=== PATIENT | female | born 1980 | race Two or more races ===

== ENCOUNTER 2020-06-01 17:04 | Outpatient (REF) | payer BC, SELFPAY ==
[2020-06-01 18:27] LABS: SCAN SMEAR FLAG 1
[2020-06-01 18:28] LABS: PLT ABN DIST 1
[2020-06-01 18:29] LABS: Basophils Percent Auto 0.4 % (0-2); Eosinophils Percent Auto 0.8 % (0-4); Hematocrit 37.8 % (37-47); Hemoglobin 12.5 g/dl (12.0-16.0); Imm Gran Abs Auto 0.01 X10*3/uL (0.00-0.03); Imm Gran Pct Auto 0.2 % (0.0-0.4); Lymphocytes Absolute Auto 1.4 X10*3/uL (1.2-4.9); MANUAL DIFF FLAG SCAN; Mean Corpuscular HGB Conc 33.1 g/dl (31.0-35.0); Mean Corpuscular Hemoglobin 30.2 pg (27.0-33.0); Mean Corpuscular Volume 91.3 fL (80-98); Mean Platelet Volume 13.6 fL (9.4-12.3); Monocytes Absolute Auto 0.3 X10*3/uL (0.1-1.2); Monocytes Percent Auto 5.8 % (2-11); Neutrophils Absolute Auto 3.3 X10*3/uL (2.0-8.3); Neutrophils Percent Auto 64.8 % (45-73); Platelet Count 231 X10*3/uL (160-400); Red Blood Count 4.14 X10*6/uL (4.20-5.50); Red Cell Distribution Width 12.8 % (11.0-16.0); White Blood Count 5.1 X10*3/uL (4.8-10.8)
[2020-06-01 18:47] LABS: SLIDE REVIEW VERIFIED
[2020-06-01 18:48] LABS: Alanine Aminotransferase 8 U/L (0-31); Albumin Level 4.6 g/dL (3.5-5.0); Alkaline Phosphatase 84 U/L (39-117); Anion Gap 17 (12-20); Aspartate Amino Transferase 18 U/L (5-31); Bilirubin Total 0.9 mg/dL (0.0-1.0); Blood Urea Nitrogen 14 mg/dL (9-16); Calcium 8.9 mg/dL (8.4-10.2); Carbon Dioxide 22 mmol/L (22-29); Chloride 102 mmol/L (96-108); Estimated Glomerular Filt Rate > 60; Glucose Random 75 mg/dL (60-115); Potassium 4.4 mmol/l (3.3-5.1); Sodium 137 mmol/L (135-145); Total Protein 8.1 g/dL (6.5-8.0)
[2020-06-01 19:09] LABS: Thyroid Stimulating Hormone 1.14 uIU/mL (0.32-4.0)
[2020-06-01 19:37] LABS: Folate 14.4 ng/mL (> or = 4.0); Vitamin B12 < 146 pg/mL (200-900)
== END 2020-06-01 17:05 | disposition home or self-care (01) ==
LOC: HO.LAB 17:04
PROVIDERS: PCP Internal Medicine; Visit Provider Psychiatry & Neurology Neurology
DX: I67.9 Cerebrovascular disease, unspecified (principal)
CPT/HCPCS: 36415; 80053; 82607; 82746; 84436; 84443; 85025

== ENCOUNTER 2021-07-10 14:00 | Inpatient (IN) | payer BC, SELFPAY ==
--- NOTE | ~2021-07-10 | XR_ITS ---
EXAMINATION: XR CHEST CLINICAL INFORMATION: Covid positive, cough COMPARISON: None TECHNIQUE: Frontal view of the chest was obtained. FINDINGS: Cardiomediastinal silhouette is normal. Lung volumes are diminished. There are bilateral patchy opacities with a minimal lung zone predominance. There are no large pleural effusions. XR/XR chest 1V IMPRESSION: Findings consistent with Covid pneumonia.
[2021-07-10 14:08] VITALS: BP 127/80; PULSE 110; RESP 14; TEMP 36.8; O2SAT 94; BMI 30.9
--- NOTE | 2021-07-10 17:03 | ED.GENADULT ---
HPI - General Adult General Chief complaint: General Medical Stated complaint: Covid + Time Seen by Provider: 07/10/21 14:16 Source: patient Mode of arrival: ambulatory Limitations: no limitations History of Present Illness HPI narrative: 41-year-old female who is not vaccinated for COVID contracted COVID infection from her about 9 days ago, patient still feeling generalized weakness, body ache, coughing with no sputum, subjective fever, and headache. Patient came in today for feeling no improvement with last 9 days, her has improved, son at home also is feeling sick. Patient is nonsmoker, with no history of lung disease Related Data Home Medications Medication Instructions Recorded Confirmed No Known Home Meds 07/10/21 07/10/21 Allergies Allergy/AdvReac Type Severity Reaction Status Date / Time acetaminophen [From PERCOCET] Allergy Mild LOSS OF Unverified 03/19/20 14:58 HEARING oxycodone [From PERCOCET] Allergy Mild LOSS OF Unverified 03/19/20 14:58 HEARING penicillin G Allergy Unknown Unverified 01/27/20 00:00 Penicillins [PENICILLINS] Allergy Unknown RASH Unverified 03/19/20 14:58 Review of Systems Review of Systems: All other systems are reviewed and are negative Constitutional: Reports as per HPI and Reports no additional constitutional complaints Eyes: Reports as per HPI and Reports no additional eye complaints Reports system reviewed and no additional complaints, except as documented Cardiovascular: Reports as per HPI and Reports no additional cardiovascular complaints Respiratory: Reports as per HPI and Reports no additional respiratory complaints Gastrointestinal: Reports as per HPI and Reports no additional gastrointestinal complaints Genitourinary: Reports no additional female genitourinary complaints Musculoskeletal: Reports no additional musculoskeletal complaints Skin/Breast: Reports system reviewed and no additional complaints, except as docu Psychiatric: Reports no additional psychiatric complaints Endocrine: Reports no additional endocrine complaints Hematologic/Lymphatic: Reports no additional hematologic/lymphatic complaints Allergic/Immunologic: Reports no additional allergic/immunologic complaints Reports system reviewed and no additional complaints, except as documented and Reports Abnormal speech present [facility] Social History Social History Advance Directives: No Advance Directives Information Provided: No Patient : No Physical Exam Vital Signs: Vital Signs: Last Vital Signs Temp 98.3 F 07/10/21 14:08 Pulse 107 H 07/10/21 17:43 Resp 24 H 07/10/21 17:43 BP 127/80 07/10/21 14:08 Pulse Ox 99 07/10/21 20:47 BMI result Body Mass Index 30.9 Vital signs have been reviewed as appeared to be correct. Blood pressure normal. Heart rate elevated. Respiration rate normal. Temperature normal. Oxygen saturation normal. Appearance: Alert. Oriented X3. No acute distress. Head: Normal external exam. Normocephalic. Atraumatic. No Z[place] signs noted. No raccoon eyes noted Eyes: PERRLA. EOMI. Conjunctiva and sclera normal. Eyelids normal. ENT: TM's Normal. Pharynx normal. Uvula midline. Moist mucous membranes. No trismus noted. No drooling noted. No muffled voice noted. Neck: Normal inspection. Neck supple. FROM. No adenopathy. Thyroid Normal. No meningeal signs. No neck mass noted. CVS: Normal heart rate and rhythm. Heart sound normal. No murmurs noted. Pulses normal throughout. Respiratory: No respiratory distress. Painless inspiration. Breath sounds normal. No wheezes/rales/rhonchi noted. Chest nontender. No accessory muscle usage noted or decreased air movement noted. Abdomen: Soft and nontender. Bowel sounds normal in all 4 quadrants. No distention noted. No organomegaly noted. No visible injury noted. Back: No CVA tenderness. Full range of motion noted. Skin: Skin warm and dry. Normal skin color. Normal skin turgor. No rashes/lesions/lacerations noted. Extremities: No lower extremity edema. Extremities exhibit normal range of motion. Extremities nontender. Neuro: Oriented X 3. Cranial nerve exam: II-XII are grossly intact No motor deficit. No sensory deficit. Reflexes normal. Course Course Course Narrative: Assessment and plan. 41-year-old female with history of COVID infection of feeling the symptoms without improvement, patient received IV hydration and morphine for the body ache will check the chest x-ray. Reevaluation(s) Reevaluation #1: 41-year-old female COVID positive patient is non vaccinated with sick contact at home, patient found to be tachypneic, tachycardiac, with exertional hypoxia go down to 88%. Will admit the patient for high-flow oxygen and dexamethasone for Patient met criteria for SIRS which is due to viral infection without evidence of bacterial infection. No antibiotic is indicated at this point. Time: 20:03 Medical Decision Making Lab Data Lab results reviewed: Yes I reviewed the patient's lab results. Result diagrams: 07/10/21 17:40 07/10/21 17:40 Labs: Lab Results 07/10/21 07/10/21 07/10/21 Range/Units 17:40 17:40 17:40 WBC 4.2 L (4.8-10.8) X10*3/uL RBC 4.12 L (4.20-5.50) X10*6/uL Hgb 12.6 (12.0-16.0) g/dl Hct 38.1 (37.0-47.0) % MCV 92.5 (80.0-98.0) fL MCH 30.6 (27.0-33.0) pg MCHC 33.1 (31.0-35.0) g/dl RDW 13.1 (11.0-16.0) % Plt Count 177 (160-400) X10*3/uL MPV 12.0 (9.4-12.3) fL Immature Gran % (Auto) 0.5 H (0.0-0.4) % Neut % (Auto) 72.1 (45-73) % Lymph % (Auto) 23.6 (20-40) % [place] % (Auto) 3.6 (2-11) % Eos % (Auto) 0.0 (0-4) % Baso % (Auto) 0.2 (0-2) % Lymph # (Auto) 1.0 L (1.2-4.9) X10*3/uL [place] # (Auto) 0.2 (0.1-1.2) X10*3/uL Eos # (Auto) 0.0 (0.0-0.4) X10*3/uL Baso # (Auto) 0.0 (0.0-0.2) X10*3/uL Abs Immat Gran (auto) 0.02 (0.00-0.03) X10*3/uL Absolute Neuts (auto) 3.0 (2.0-8.3) x10*3/uL Absolute Nucleated RBC 0.000 (0.0-0.012) X10*3/uL Nucleated RBC % (auto) 0.0 (0.0-0.2) /100WBC Sodium 136 (135-145) mmol/L Potassium 3.1 L (3.3-5.1) mmol/L Chloride 97 (96-108) mmol/L Carbon Dioxide 30 H (22-29) mmol/L Anion Gap 12 (12-20) BUN 10 (9-16) mg/dL Creatinine 0.89 (0.5-1.4) mg/dL Estim Creat Clear Calc 85.9 Estimated GFR > 60 Random Glucose 105 (60-115) mg/dL Calcium 9.0 (8.4-10.2) mg/dL Total Bilirubin 0.5 (0.0-1.0) mg/dL Direct Bilirubin 0.3 (0.0-0.5) mg/dL AST 26 D (5-31) U/L ALT 13 (0-31) U/L Alkaline Phosphatase 75 (39-117) U/L Total Protein 8.1 H (6.5-8.0) g/dL Albumin 4.3 (3.5-5.0) g/dL Lipase 20 (8-78) U/L Urine Color Urine Appearance Urine pH (5.0-8.0) Ur Specific [place] (1.005-1.025) Urine Protein (NEG-TRACE) MG/DL Urine Glucose (UA) (NEG) MG/DL Urine Ketones (NEG) MG/DL Urine Blood (NEG) Urine Nitrite (NEG) Ur Leukocyte Esterase (NEG) Urine RBC (0) /HPF Urine WBC (0-4) /HPF Ur Squamous Epith Cells /LPF Urine Bacteria /LPF Urine Mucus /LPF Influenza Type A (PCR) NEGATIVE (Negative) Influenza Type B (PCR) NEGATIVE (Negative) RSV RNA Qual (PCR) NEGATIVE (Negative) SARS-CoV-2 RNA (RT-PCR) POSITIVE A (Negative) 07/10/21 Range/Units 17:40 WBC (4.8-10.8) X10*3/uL RBC (4.20-5.50) X10*6/uL Hgb (12.0-16.0) g/dl Hct (37.0-47.0) % MCV (80.0-98.0) fL MCH (27.0-33.0) pg MCHC (31.0-35.0) g/dl RDW (11.0-16.0) % Plt Count (160-400) X10*3/uL MPV (9.4-12.3) fL Immature Gran % (Auto) (0.0-0.4) % Neut % (Auto) (45-73) % Lymph % (Auto) (20-40) % [place] % (Auto) (2-11) % Eos % (Auto) (0-4) % Baso % (Auto) (0-2) % Lymph # (Auto) (1.2-4.9) X10*3/uL [place] # (Auto) (0.1-1.2) X10*3/uL Eos # (Auto) (0.0-0.4) X10*3/uL Baso # (Auto) (0.0-0.2) X10*3/uL Abs Immat Gran (auto) (0.00-0.03) X10*3/uL Absolute Neuts (auto) (2.0-8.3) x10*3/uL Absolute Nucleated RBC (0.0-0.012) X10*3/uL Nucleated RBC % (auto) (0.0-0.2) /100WBC Sodium (135-145) mmol/L Potassium (3.3-5.1) mmol/L Chloride (96-108) mmol/L Carbon Dioxide (22-29) mmol/L Anion Gap (12-20) BUN (9-16) mg/dL Creatinine (0.5-1.4) mg/dL Estim Creat Clear Calc Estimated GFR Random Glucose (60-115) mg/dL Calcium (8.4-10.2) mg/dL Total Bilirubin (0.0-1.0) mg/dL Direct Bilirubin (0.0-0.5) mg/dL AST (5-31) U/L ALT (0-31) U/L Alkaline Phosphatase (39-117) U/L Total Protein (6.5-8.0) g/dL Albumin (3.5-5.0) g/dL Lipase (8-78) U/L Urine Color DK YELLOW Urine Appearance CLEAR Urine pH 6.0 (5.0-8.0) Ur Specific [place] 1.025 (1.005-1.025) Urine Protein 1+ H (NEG-TRACE) MG/DL Urine Glucose (UA) NEG (NEG) MG/DL Urine Ketones >=80 (NEG) MG/DL Urine Blood NEG (NEG) Urine Nitrite NEG (NEG) Ur Leukocyte Esterase NEG (NEG) Urine RBC 0-2 (0) /HPF Urine WBC 0-2 (0-4) /HPF Ur Squamous Epith Cells 1+ /LPF Urine Bacteria TRACE /LPF Urine Mucus TRACE /LPF Influenza Type A (PCR) (Negative) Influenza Type B (PCR) (Negative) RSV RNA Qual (PCR) (Negative) SARS-CoV-2 RNA (RT-PCR) (Negative) Imaging Data Chest x-ray: Attestation: I personally reviewed and interpreted this imaging study as follows: Radiologist's impression: Findings consistent with COVID pneumonia. Discharge Plan Discharge Clinical Impression: COVID-19 virus infection Patient Disposition: Admitted As Inpatient
[2021-07-10] MEDS: Morphine Sulfate 2 MG/ML CARTRIDGE 1 MG IVPUSH (17:42)
[2021-07-10 17:43] VITALS: PULSE 107; RESP 24; O2SAT 91
[2021-07-10] MEDS: 0.9 % Sodium Chloride 1,000 ML 999 ML IV (17:43)
[2021-07-10 17:50] LABS: MANUAL DIFF FLAG NO
[2021-07-10 17:52] LABS: Basophils Percent Auto 0.2 % (0-2); Hematocrit 38.1 % (37.0-47.0); Hemoglobin 12.6 g/dl (12.0-16.0); Imm Gran Abs Auto 0.02 X10*3/uL (0.00-0.03); Imm Gran Pct Auto 0.5 % (0.0-0.4); Lymphocytes Percent Auto 23.6 % (20-40); Mean Corpuscular HGB Conc 33.1 g/dl (31.0-35.0); Mean Corpuscular Hemoglobin 30.6 pg (27.0-33.0); Mean Corpuscular Volume 92.5 fL (80.0-98.0); Monocytes Absolute Auto 0.2 X10*3/uL (0.1-1.2); Monocytes Percent Auto 3.6 % (2-11); Neutrophils Percent Auto 72.1 % (45-73); Platelet Count 177 X10*3/uL (160-400); Red Blood Count 4.12 X10*6/uL (4.20-5.50); Red Cell Distribution Width 13.1 % (11.0-16.0); White Blood Count 4.2 X10*3/uL (4.8-10.8)
[2021-07-10] MEDS: ondansetron HCL 4 MG/2 ML VIAL IVPUSH (17:52)
[2021-07-10 17:56] LABS: Appearance Urine CLEAR; Color Urine DK YELLOW; Glucose Urine UA NEG (NEG); Leukocyte Esterase Urine NEG (NEG); Nitrite Urine NEG (NEG); Specific Gravity - Urine 1.025 (1.005-1.025); UACC Culture Trigger NO; Urine Blood NEG (NEG); Urine Ketones >=80 MG/DL (NEG); Urine Protein 1+ MG/DL (NEG-TRACE)
[2021-07-10 18:10] LABS: Alanine Aminotransferase 13 U/L (0-31); Albumin Level 4.3 g/dL (3.5-5.0); Alkaline Phosphatase 75 U/L (39-117); Anion Gap 12 (12-20); Aspartate Amino Transferase 26 U/L (5-31); Bilirubin Direct 0.3 mg/dL (0.0-0.5); Bilirubin Total 0.5 mg/dL (0.0-1.0); Blood Urea Nitrogen 10 mg/dL (9-16); Carbon Dioxide 30 mmol/L (22-29); Chloride 97 mmol/L (96-108); Creatinine Clr Calc Pharmacy 85.9; Estimated Glomerular Filt Rate > 60; Glucose Random 105 mg/dL (60-115); Lipase 20 U/L (8-78); Potassium 3.1 mmol/L (3.3-5.1); Sodium 136 mmol/L (135-145); Total Protein 8.1 g/dL (6.5-8.0)
[2021-07-10 18:23] LABS: RBC Urine 0-2 /HPF (0); WBC Urine 0-2 /HPF (0-4)
[2021-07-10 18:24] LABS: Bacteria Urine TRACE /LPF; Mucus Urine TRACE /LPF; Squamous Epithelial Cell Urine 1+ /LPF
[2021-07-10 18:29] LABS: Influenza A PCR NEGATIVE (Negative); Influenza B PCR NEGATIVE (Negative); Resp Syncy Virus RNA Qual PCR NEGATIVE (Negative); SARS COV2 PCR INHOUSE POSITIVE (Negative)
--- NOTE | 2021-07-10 20:30 | PM.IMHP ---
History of Present Illness Date of Service: 07/10/21 Chief Complaint: Shortness of breath 41-year-old female with no significant past medical history presented to the hospital with a chief complaint of shortness of breath. Patient reports that over the past 5-6 days she has been having shortness of breath, dyspnea on exertion. Patient reports the was positive for COVID-19 infection. Mentions she was vaccinated in the past. Her symptoms have been gradually worsening, complains of increased generalized weakness, fatigue, shortness of breath and dyspnea on exertion associated with cough. Complains of subjective chills. Denies any chest pain or palpitations. Denies any numbness tingling or focal weakness. Review of all other systems is negative except mentioned above ER course: Per ER team patient was noted to be mildly tachypneic; chest x-ray showed COVID pneumonia; patient was saturating 91% on room air; the lowest was 88%; patient of placed on supplemental oxygen. Admitted to the hospital for further management. [facility] Social History Advance Directives: No Advance Directives Information Provided: No Patient : No Meds Allergies Allergy/AdvReac Type Severity Reaction Status Date / Time acetaminophen [From PERCOCET] Allergy Mild LOSS OF Unverified 03/19/20 14:58 HEARING oxycodone [From PERCOCET] Allergy Mild LOSS OF Unverified 03/19/20 14:58 HEARING penicillin G Allergy Unknown Unverified 01/27/20 00:00 Penicillins [PENICILLINS] Allergy Unknown RASH Unverified 03/19/20 14:58 Physical Exam Vital Signs and Narrative: Vital Signs: Last Vital Signs Temp 98.3 F 07/10/21 14:08 Pulse 107 H 07/10/21 17:43 Resp 24 H 07/10/21 17:43 BP 127/80 07/10/21 14:08 Pulse Ox 91 L 07/10/21 17:43 BMI result Body Mass Index 30.9 Gen: Appears be in no acute distress HEENT: NCAT, Moist mucosa. Pulmonary: Coarse breath sounds CVS: Normal S1-S2 Abdomen: BS+, Soft, Nontender Extremities: Warm well perfused Neuro: Alert and awake. Results Labs CBC and Chem 7: 07/10/21 17:40 07/10/21 17:40 Labs: Laboratory Results - last 24 hr 07/10/21 07/10/21 07/10/21 17:40 17:40 17:40 MCV 92.5 MCH 30.6 MCHC 33.1 RDW 13.1 Plt Count 177 MPV 12.0 Immature Gran % (Auto) 0.5 H Neut % (Auto) 72.1 Lymph % (Auto) 23.6 [place] % (Auto) 3.6 Eos % (Auto) 0.0 Baso % (Auto) 0.2 Lymph # (Auto) 1.0 L [place] # (Auto) 0.2 Eos # (Auto) 0.0 Baso # (Auto) 0.0 Abs Immat Gran (auto) 0.02 Absolute Neuts (auto) 3.0 Absolute Nucleated RBC 0.000 Nucleated RBC % (auto) 0.0 Anion Gap 12 Estim Creat Clear Calc 85.9 Estimated GFR > 60 Random Glucose 105 Calcium 9.0 Total Bilirubin 0.5 Direct Bilirubin 0.3 AST 26 D ALT 13 Alkaline Phosphatase 75 Total Protein 8.1 H Albumin 4.3 Lipase 20 Urine Color Urine Appearance Urine pH Ur Specific [place] Urine Protein Urine Glucose (UA) Urine Ketones Urine Blood Urine Nitrite Ur Leukocyte Esterase Urine RBC Urine WBC Ur Squamous Epith Cells Urine Bacteria Urine Mucus Influenza Type A (PCR) NEGATIVE Influenza Type B (PCR) NEGATIVE RSV RNA Qual (PCR) NEGATIVE SARS-CoV-2 RNA (RT-PCR) POSITIVE A 07/10/21 17:40 MCV MCH MCHC RDW Plt Count MPV Immature Gran % (Auto) Neut % (Auto) Lymph % (Auto) [place] % (Auto) Eos % (Auto) Baso % (Auto) Lymph # (Auto) [place] # (Auto) Eos # (Auto) Baso # (Auto) Abs Immat Gran (auto) Absolute Neuts (auto) Absolute Nucleated RBC Nucleated RBC % (auto) Anion Gap Estim Creat Clear Calc Estimated GFR Random Glucose Calcium Total Bilirubin Direct Bilirubin AST ALT Alkaline Phosphatase Total Protein Albumin Lipase Urine Color DK YELLOW Urine Appearance CLEAR Urine pH 6.0 Ur Specific [place] 1.025 Urine Protein 1+ H Urine Glucose (UA) NEG Urine Ketones >=80 Urine Blood NEG Urine Nitrite NEG Ur Leukocyte Esterase NEG Urine RBC 0-2 Urine WBC 0-2 Ur Squamous Epith Cells 1+ Urine Bacteria TRACE Urine Mucus TRACE Influenza Type A (PCR) Influenza Type B (PCR) RSV RNA Qual (PCR) SARS-CoV-2 RNA (RT-PCR) Imaging Radiologist's Impressions: Impressions Chest X-Ray 07/10/21 17:50 IMPRESSION: Findings consistent with Covid pneumonia. Assessment and Plan (1) COVID-19 virus infection: Status: Acute 41-year-old female with no significant past medical history presented to the hospital with a chief complaint of shortness of breath. Noted to have hypoxic to 88% in the setting of COVID-19 pneumonia. Admitted for further management. COVID-19 pneumonia: Continue Decadron 6 mg, Levaquin empirically. Supplemental oxygen ID consult for further recommendations. Patient reports she was vaccinated with COVID 19 vaccine in the past. DVT prophylaxis: Lovenox Code status: Full code Quality Stroke Does the patient have a stroke diagnosis?: No VTE Prior VTE?: No VTE Risk Level:: Medical - moderate - high VTE Device Contraindication: Treatment Not Indicated VTE Drug Contraindication: N/A - Med Ordered
[2021-07-10 20:45] VITALS: O2SAT 88
--- NOTE | 2021-07-10 20:45 | PC.NURSE ---
PT satting at 88% on RA. PT placed on O2 via NC at 2 L/min. PT sat with O2 is at 99%.
[2021-07-10 20:47] VITALS: O2SAT 99
[2021-07-10 21:15] LABS: D Dimer High Sensitivity 803 NG/ML
[2021-07-10] MEDS: levoFLOXacin 750 MG TABLET PO (21:27)
[2021-07-10] MEDS: Enoxaparin Sodium 40 MG/0.4 ML SYRINGE SUBCUT (21:28)
--- NOTE | 2021-07-10 21:32 | PC.NURSE ---
pt resting in bed, pt medicated per Mar.
[2021-07-11] VITALS (11 sets, daily range): BP systolic 102–119; BP diastolic 58–75; PULSE 78–115; RESP 18–27; TEMP 36.8–37.8; O2SAT 89–98
[2021-07-11] MEDS: 0.9 % Sodium Chloride Flush 3 ML SYRINGE IVFLUSH ×2 (02:29→07:47)
[2021-07-11] MEDS: Morphine Sulfate 2 MG/ML CARTRIDGE 1 MG IVPUSH ×3 (02:31→20:18)
[2021-07-11] MEDS: ondansetron HCL 4 MG/2 ML VIAL IVPUSH (05:20)
[2021-07-11 06:45] LABS: MANUAL DIFF FLAG NO
[2021-07-11 06:50] LABS: Hemoglobin 10.5 g/dl (12.0-16.0); Imm Gran Abs Auto 0.01 X10*3/uL (0.00-0.03); Imm Gran Pct Auto 0.3 % (0.0-0.4); Lymphocytes Absolute Auto 0.9 X10*3/uL (1.2-4.9); Lymphocytes Percent Auto 25.1 % (20-40); Mean Corpuscular HGB Conc 32.8 g/dl (31.0-35.0); Mean Corpuscular Volume 91.4 fL (80.0-98.0); Mean Platelet Volume 11.8 fL (9.4-12.3); Monocytes Absolute Auto 0.2 X10*3/uL (0.1-1.2); Monocytes Percent Auto 4.3 % (2-11); Neutrophils Absolute Auto 2.6 x10*3/uL (2.0-8.3); Neutrophils Percent Auto 70.3 % (45-73); Platelet Count 159 X10*3/uL (160-400); Red Cell Distribution Width 13.3 % (11.0-16.0); White Blood Count 3.7 X10*3/uL (4.8-10.8)
[2021-07-11 07:08] LABS: Anion Gap 11 (12-20); Blood Urea Nitrogen 8 mg/dL (9-16); Carbon Dioxide 29 mmol/L (22-29); Chloride 100 mmol/L (96-108); Creatinine Clr Calc Pharmacy 106.3; Estimated Glomerular Filt Rate > 60; Glucose Random 113 mg/dL (60-115); Potassium 3.3 mmol/L (3.3-5.1); Sodium 137 mmol/L (135-145)
[2021-07-11 07:20] LABS: Calcium 8.2 mg/dL (8.4-10.2)
[2021-07-11] MEDS: dexAMETHasone sod phosphate 4 MG/ML VIAL 6 MG IVPUSH (07:47)
[2021-07-11] MEDS: Acetaminophen 325 MG TABLET 650 MG PO (07:53)
--- NOTE | 2021-07-11 09:36 | P.PNIM_ITS ---
Subjective Subjective Date of Service: 07/11/21 Interval History: cc: sob, myalgias interval history: unchanged Cardiovascular Cardiovascular: Reports no additional cardiovascular complaints Respiratory Respiratory: Reports no additional respiratory complaints Physical Exam Vital Signs: Vital Signs: Last Vital Signs Temp 98.5 F 07/11/21 09:01 Pulse 89 07/11/21 07:22 Resp 27 H 07/11/21 07:22 BP 117/75 07/11/21 07:22 Pulse Ox 98 07/11/21 07:22 BMI result Body Mass Index 30.9 General: AO X 3, diaphoretic, ill appearing Resp: Crackles bilateral, no accessory muscles used CVS: S1,S2,RRR GI: soft, non tender, non distended Neuro: motor grossly intact, alert Psych: appropriate affect, appropriate insight Objective Data Active Medications Acetaminophen (Acetaminophen 325 Mg Tablet) 650 mg PO Q6H PRN PRN Reason: Pain, Mild (Pain Scale 1-3) Last Admin: 07/11/21 07:53 Dose: 650 mg Documented by: SAMANTHA Dexamethasone Sodium Phosphate (Dexamethasone Sod Phosphate 4 Mg/Ml Vial) 6 mg IVPUSH DAILY [facility] Last Admin: 07/11/21 07:47 Dose: 6 mg Documented by: SAMANTHA Enoxaparin Sodium (Enoxaparin Sodium 40 Mg/0.4 Ml Syringe) 40 mg SUBCUT Q24H [facility] Last Admin: 07/10/21 21:28 Dose: 40 mg Documented by: IMTIAZ Morphine Sulfate (Morphine Sulfate 2 Mg/Ml Cartridge) 1 mg IVPUSH Q4H PRN; Protocol PRN Reason: pain/sob Last Admin: 07/11/21 07:46 Dose: 1 mg Documented by: SAMANTHA Senna (Sennosides 8.6 Mg Tablet) 17.2 mg PO BEDTIME PRN PRN Reason: Constipation Sodium Chloride (0.9 % Sodium Chloride Flush 3 Ml Syringe) 3 ml IVFLUSH QSHIFT [facility] Last Admin: 07/11/21 07:47 Dose: 3 ml Documented by: SAMANTHA Labs CBC & Chem 7: 07/11/21 06:40 07/11/21 06:40 Labs: Laboratory Results - last 24 hr 07/10/21 07/10/21 07/10/21 17:40 17:40 17:40 MCV 92.5 MCH 30.6 MCHC 33.1 RDW 13.1 Plt Count 177 MPV 12.0 Immature Gran % (Auto) 0.5 H Neut % (Auto) 72.1 Lymph % (Auto) 23.6 [place] % (Auto) 3.6 Eos % (Auto) 0.0 Baso % (Auto) 0.2 Lymph # (Auto) 1.0 L [place] # (Auto) 0.2 Eos # (Auto) 0.0 Baso # (Auto) 0.0 Abs Immat Gran (auto) 0.02 Absolute Neuts (auto) 3.0 Absolute Nucleated RBC 0.000 Nucleated RBC % (auto) 0.0 D-Dimer High Sensitivty Anion Gap 12 Estim Creat Clear Calc 85.9 Estimated GFR > 60 Random Glucose 105 Calcium 9.0 Total Bilirubin 0.5 Direct Bilirubin 0.3 AST 26 D ALT 13 Alkaline Phosphatase 75 Total Protein 8.1 H Albumin 4.3 Lipase 20 Urine Color Urine Appearance Urine pH Ur Specific [place] Urine Protein Urine Glucose (UA) Urine Ketones Urine Blood Urine Nitrite Ur Leukocyte Esterase Urine RBC Urine WBC Ur Squamous Epith Cells Urine Bacteria Urine Mucus Influenza Type A (PCR) NEGATIVE Influenza Type B (PCR) NEGATIVE RSV RNA Qual (PCR) NEGATIVE SARS-CoV-2 RNA (RT-PCR) POSITIVE A 07/10/21 07/10/21 07/11/21 17:40 20:46 06:40 MCV 91.4 MCH 30.0 MCHC 32.8 RDW 13.3 Plt Count 159 L MPV 11.8 Immature Gran % (Auto) 0.3 Neut % (Auto) 70.3 Lymph % (Auto) 25.1 [place] % (Auto) 4.3 Eos % (Auto) 0.0 Baso % (Auto) 0.0 Lymph # (Auto) 0.9 L [place] # (Auto) 0.2 Eos # (Auto) 0.0 Baso # (Auto) 0.0 Abs Immat Gran (auto) 0.01 Absolute Neuts (auto) 2.6 Absolute Nucleated RBC 0.000 Nucleated RBC % (auto) 0.0 D-Dimer High Sensitivty 803 Anion Gap Estim Creat Clear Calc Estimated GFR Random Glucose Calcium Total Bilirubin Direct Bilirubin AST ALT Alkaline Phosphatase Total Protein Albumin Lipase Urine Color DK YELLOW Urine Appearance CLEAR Urine pH 6.0 Ur Specific [place] 1.025 Urine Protein 1+ H Urine Glucose (UA) NEG Urine Ketones >=80 Urine Blood NEG Urine Nitrite NEG Ur Leukocyte Esterase NEG Urine RBC 0-2 Urine WBC 0-2 Ur Squamous Epith Cells 1+ Urine Bacteria TRACE Urine Mucus TRACE Influenza Type A (PCR) Influenza Type B (PCR) RSV RNA Qual (PCR) SARS-CoV-2 RNA (RT-PCR) 07/11/21 06:40 MCV MCH MCHC RDW Plt Count MPV Immature Gran % (Auto) Neut % (Auto) Lymph % (Auto) [place] % (Auto) Eos % (Auto) Baso % (Auto) Lymph # (Auto) [place] # (Auto) Eos # (Auto) Baso # (Auto) Abs Immat Gran (auto) Absolute Neuts (auto) Absolute Nucleated RBC Nucleated RBC % (auto) D-Dimer High Sensitivty Anion Gap 11 L Estim Creat Clear Calc 106.3 Estimated GFR > 60 Random Glucose 113 Calcium 8.2 L D Total Bilirubin Direct Bilirubin AST ALT Alkaline Phosphatase Total Protein Albumin Lipase Urine Color Urine Appearance Urine pH Ur Specific [place] Urine Protein Urine Glucose (UA) Urine Ketones Urine Blood Urine Nitrite Ur Leukocyte Esterase Urine RBC Urine WBC Ur Squamous Epith Cells Urine Bacteria Urine Mucus Influenza Type A (PCR) Influenza Type B (PCR) RSV RNA Qual (PCR) SARS-CoV-2 RNA (RT-PCR) Assessment and Plan (1) COVID-19 virus infection: Status: Acute Assessment and Plan: 41F presented with sob, myalgias acute hypoxic respiratory failure due to covid pneumonia decadron day 2 wean o2 as tolerated no evidence of bacterial infection, will dc levaquin ID eval pancytopenia likely due to above could be from history of untreated b12 defeciency recheck b12 start supplement dvt prophylaxis - lovenox full code Quality Stroke Does the patient have a stroke diagnosis?: No VTE Prior VTE?: No VTE Risk Level:: Medical - moderate - high VTE Device Contraindication: Treatment Not Indicated VTE Drug Contraindication: N/A - Med Ordered
[2021-07-11] MEDS: Cyanocobalamin (Vitamin B-12) 1,000 MCG TABLET 1000 MCG PO (11:41)
--- NOTE | 2021-07-11 14:43 | MHC.CM.PN ---
Met with patient in regards to discharge planning. Patient lives with her and children, ambulates independently and had no services prior to coming to the hospital. Patient tested positive for Covid on 07/10. Patient has not received any Covid vaccines. HCP completed, signed and witnessed. Original given to patient. Copy placed in chart. to transport when medically stable. Continue to monitor for d/c needs.
--- NOTE | 2021-07-11 17:00 | PC.NURSE ---
PT HAS HAD AN UNEVENTFUL DAY, SHE HAS BEE OFF O2 AND HAS REMAINS >90% SHE IS TOLERATING PO INTAKE
--- NOTE | 2021-07-11 20:02 | PC.NURSE ---
Assumed care of pt at 1900. Pt resting in bed, attached to mission assessment specialist, call light at hand. Endorsing ACOSTA, will medicate
[2021-07-11] MEDS: Enoxaparin Sodium 40 MG/0.4 ML SYRINGE SUBCUT (20:20)
[2021-07-12] VITALS (7 sets, daily range): BP systolic 98–124; BP diastolic 51–76; PULSE 76–87; RESP 16–20; TEMP 36.3–37.2; O2SAT 91–98; BMI 30.9
[2021-07-12 07:41] LABS: Hematocrit 32.7 % (37.0-47.0); Hemoglobin 10.6 g/dl (12.0-16.0); Mean Corpuscular HGB Conc 32.4 g/dl (31.0-35.0); Mean Corpuscular Volume 92.6 fL (80.0-98.0); Mean Platelet Volume 11.6 fL (9.4-12.3); Platelet Count 193 X10*3/uL (160-400); Red Blood Count 3.53 X10*6/uL (4.20-5.50); Red Cell Distribution Width 13.2 % (11.0-16.0); White Blood Count 4.5 X10*3/uL (4.8-10.8)
[2021-07-12 07:45] LABS: D Dimer High Sensitivity 532 NG/ML
[2021-07-12 08:02] LABS: Anion Gap 10 (12-20); Blood Urea Nitrogen 11 mg/dL (9-16); C Reactive Protein 6.37 mg/dL (< or = 0.50); Calcium 8.9 mg/dL (8.4-10.2); Carbon Dioxide 32 mmol/L (22-29); Chloride 101 mmol/L (96-108); Creatinine Clr Calc Pharmacy 100.6; Estimated Glomerular Filt Rate > 60; Glucose Fasting 123 mg/dL (60-99); Sodium 140 mmol/L (135-145)
[2021-07-12 08:34] LABS: Vitamin B12 164 pg/mL (200-900)
[2021-07-12 08:38] LABS: Lactate Dehydrogenase 263 U/L (122-220)
[2021-07-12] MEDS: dexAMETHasone sod phosphate 4 MG/ML VIAL 6 MG IVPUSH (09:18)
[2021-07-12] MEDS: 0.9 % Sodium Chloride Flush 3 ML SYRINGE IVFLUSH ×2 (09:18→17:10)
[2021-07-12] MEDS: Cyanocobalamin (Vitamin B-12) 1,000 MCG TABLET 1000 MCG PO (09:18)
--- NOTE | 2021-07-12 09:22 | PC.NURSE ---
pt sleeping, but easily arousable, respirations even and unlabored, ls diminished on the bases, sating at% on 2l, pt reports having a bad headache pain at 8/10, normal sinus on the monitor
[2021-07-12] MEDS: Morphine Sulfate 2 MG/ML CARTRIDGE 1 MG IVPUSH (09:49)
--- NOTE | 2021-07-12 11:10 | HO.PM.IMPN ---
Subjective Subjective Date of Service: 07/12/21 Interval History: cc: sob, myalgias interval history: unchanged Cardiovascular Cardiovascular: Reports no additional cardiovascular complaints Respiratory Respiratory: Reports no additional respiratory complaints Physical Exam Vital Signs: Vital Signs: Last Vital Signs Temp 98.9 F 07/12/21 05:31 Pulse 82 07/12/21 09:24 Resp 18 07/12/21 09:24 BP 98/51 L 07/12/21 09:24 Pulse Ox 94 07/12/21 09:24 BMI result Body Mass Index 30.9 General: AO X 3, diaphoretic, ill appearing Resp:? Crackles bilateral, no accessory muscles used CVS: S1,S2,RRR GI: soft, non tender, non distended Neuro:? motor grossly intact, alert Psych: appropriate affect, appropriate insight? Objective Data Active Medications Acetaminophen (Acetaminophen 325 Mg Tablet) 650 mg PO Q6H PRN PRN Reason: Pain, Mild (Pain Scale 1-3) Last Admin: 07/11/21 07:53 Dose: 650 mg Documented by: SAMANTHA Cyanocobalamin (Cyanocobalamin (Vitamin B-12) 1,000 Mcg Tablet) 1,000 mcg PO DAILY [facility] Last Admin: 07/12/21 09:18 Dose: 1,000 mcg Documented by: REED Dexamethasone Sodium Phosphate (Dexamethasone Sod Phosphate 4 Mg/Ml Vial) 6 mg IVPUSH DAILY [facility] Last Admin: 07/12/21 09:18 Dose: 6 mg Documented by: REED Enoxaparin Sodium (Enoxaparin Sodium 40 Mg/0.4 Ml Syringe) 40 mg SUBCUT Q24H [facility] Last Admin: 07/11/21 20:20 Dose: 40 mg Documented by: PEDRO Morphine Sulfate (Morphine Sulfate 2 Mg/Ml Cartridge) 1 mg IVPUSH Q4H PRN; Protocol PRN Reason: pain/sob Last Admin: 07/12/21 09:49 Dose: 1 mg Documented by: REED Senna (Sennosides 8.6 Mg Tablet) 17.2 mg PO BEDTIME PRN PRN Reason: Constipation Sodium Chloride (0.9 % Sodium Chloride Flush 3 Ml Syringe) 3 ml IVFLUSH QSHIFT [facility] Last Admin: 07/12/21 09:18 Dose: 3 ml Documented by: HO.BAILEA Labs CBC & Chem 7: 07/12/21 07:28 07/12/21 07:28 Labs: Laboratory Results - last 24 hr 07/11/21 07/12/21 07/12/21 06:40 07:28 07:28 MCV 92.6 MCH 30.0 MCHC 32.4 RDW 13.2 Plt Count 193 MPV 11.6 Absolute Nucleated RBC 0.000 Nucleated RBC % (auto) 0.0 D-Dimer High Sensitivty 532 Anion Gap Estim Creat Clear Calc Estimated GFR Fasting Glucose Calcium Lactate Dehydrogenase C-Reactive Protein Vitamin B12 164 L 07/12/21 07:28 MCV MCH MCHC RDW Plt Count MPV Absolute Nucleated RBC Nucleated RBC % (auto) D-Dimer High Sensitivty Anion Gap 10 L Estim Creat Clear Calc 100.6 Estimated GFR > 60 Fasting Glucose 123 H Calcium 8.9 D Lactate Dehydrogenase 263 H C-Reactive Protein 6.37 H Vitamin B12 Assessment and Plan (1) COVID-19 virus infection: Status: Acute Assessment and Plan: 41F presented with sob, myalgias acute hypoxic respiratory failure due to covid pneumonia decadron day 3 wean o2 as tolerated ID eval still desaturating to 87% on room air this morning and symptomatic pancytopenia likely due to above could be from history of untreated b12 defeciency, repeat 164 started supplement hypokalemia replace and monitor dvt prophylaxis - lovenox full code Quality Stroke Does the patient have a stroke diagnosis?: No VTE Prior VTE?: No VTE Risk Level:: Medical - moderate - high VTE Device Contraindication: Treatment Not Indicated VTE Drug Contraindication: N/A - Med Ordered
[2021-07-12] MEDS: Potassium Chloride ER 20 MEQ TAB.ER.PRT 40 MEQ PO (11:48)
--- NOTE | 2021-07-12 11:50 | PC.NURSE ---
pt reports feeling better after the morphine no pain at this time
[2021-07-12] MEDS: Enoxaparin Sodium 40 MG/0.4 ML SYRINGE SUBCUT (20:45)
[2021-07-13] MEDS: 0.9 % Sodium Chloride Flush 3 ML SYRINGE IVFLUSH ×4 (01:02→21:45)
[2021-07-13 03:51] VITALS: BP 114/57; PULSE 57; RESP 18; TEMP 36.5; O2SAT 98
[2021-07-13 06:59] LABS: Hemoglobin 10.3 g/dl (12.0-16.0); Mean Corpuscular HGB Conc 32.2 g/dl (31.0-35.0); Mean Corpuscular Hemoglobin 29.9 pg (27.0-33.0); Platelet Count 222 X10*3/uL (160-400); Red Blood Count 3.44 X10*6/uL (4.20-5.50); Red Cell Distribution Width 13.2 % (11.0-16.0); White Blood Count 3.5 X10*3/uL (4.8-10.8)
[2021-07-13 07:33] VITALS: BP 100/53; PULSE 63; RESP 20; TEMP 37.1; O2SAT 98
[2021-07-13 07:33] LABS: Anion Gap 11 (12-20); Blood Urea Nitrogen 15 mg/dL (9-16); Calcium 9.1 mg/dL (8.4-10.2); Carbon Dioxide 30 mmol/L (22-29); Chloride 104 mmol/L (96-108); Creatinine Clr Calc Pharmacy 99.4; Estimated Glomerular Filt Rate > 60; Glucose Fasting 91 mg/dL (60-99); Magnesium 2.3 mg/dL (1.6-2.6); Potassium 4.1 mmol/L (3.3-5.1); Sodium 141 mmol/L (135-145)
[2021-07-13] MEDS: dexAMETHasone sod phosphate 4 MG/ML VIAL 6 MG IVPUSH (10:21)
[2021-07-13] MEDS: Cyanocobalamin (Vitamin B-12) 1,000 MCG TABLET 1000 MCG PO (10:22)
[2021-07-13] MEDS: Acetaminophen 325 MG TABLET 650 MG PO (11:14)
[2021-07-13 12:00] VITALS: BP 103/62; PULSE 78; RESP 20; TEMP 36.4; O2SAT 96
--- NOTE | 2021-07-13 12:33 | HO.PM.IMPN ---
Subjective Subjective Date of Service: 07/13/21 Interval History: cc: sob, myalgias interval history: a bit better today Cardiovascular Cardiovascular: Reports no additional cardiovascular complaints Gastrointestinal Gastrointestinal: Reports no additional gastrointestinal complaints Physical Exam Vital Signs: Vital Signs: Last Vital Signs Temp 97.6 F 07/13/21 12:00 Pulse 78 07/13/21 12:00 Resp 20 07/13/21 12:00 BP 103/62 07/13/21 12:00 Pulse Ox 96 07/13/21 12:00 BMI result Body Mass Index 30.9 General: AO X 3, weak Resp:? Crackles bilateral, no accessory muscles used CVS: S1,S2,RRR GI: soft, non tender, non distended Neuro:? motor grossly intact, alert Psych: appropriate affect, appropriate insight? Objective Data Active Medications Acetaminophen (Acetaminophen 325 Mg Tablet) 650 mg PO Q6H PRN PRN Reason: Pain, Mild (Pain Scale 1-3) Last Admin: 07/13/21 11:14 Dose: 650 mg Documented by: ANANYA Cyanocobalamin (Cyanocobalamin (Vitamin B-12) 1,000 Mcg Tablet) 1,000 mcg PO DAILY [facility] Last Admin: 07/13/21 10:22 Dose: 1,000 mcg Documented by: ANANYA Dexamethasone Sodium Phosphate (Dexamethasone Sod Phosphate 4 Mg/Ml Vial) 6 mg IVPUSH DAILY [facility] Last Admin: 07/13/21 10:21 Dose: 6 mg Documented by: ANANYA Enoxaparin Sodium (Enoxaparin Sodium 40 Mg/0.4 Ml Syringe) 40 mg SUBCUT Q24H [facility] Last Admin: 07/12/21 20:45 Dose: 40 mg Documented by: CARMEN Morphine Sulfate (Morphine Sulfate 2 Mg/Ml Cartridge) 1 mg IVPUSH Q4H PRN; Protocol PRN Reason: pain/sob Last Admin: 07/12/21 09:49 Dose: 1 mg Documented by: REED Ondansetron HCl (Ondansetron Hcl 4 Mg/2 Ml Vial) 4 mg IVPUSH Q6H PRN PRN Reason: nasuea Senna (Sennosides 8.6 Mg Tablet) 17.2 mg PO BEDTIME PRN PRN Reason: Constipation Sodium Chloride (0.9 % Sodium Chloride Flush 3 Ml Syringe) 3 ml IVFLUSH QSHIFT [facility] Last Admin: 07/13/21 10:21 Dose: 3 ml Documented by: ANANYA Labs CBC & Chem 7: 07/13/21 06:38 07/13/21 06:37 Labs: Laboratory Results - last 24 hr 07/13/21 07/13/21 06:37 06:38 MCV 93.0 MCH 29.9 MCHC 32.2 RDW 13.2 Plt Count 222 MPV 12.0 Absolute Nucleated RBC 0.000 Nucleated RBC % (auto) 0.0 Anion Gap 11 L Estim Creat Clear Calc 99.4 Estimated GFR > 60 Fasting Glucose 91 Calcium 9.1 Magnesium 2.3 Assessment and Plan (1) COVID-19 virus infection: Status: Acute Assessment and Plan: 41F presented with sob, myalgias acute hypoxic respiratory failure due to covid pneumonia decadron day 4 wean o2 as tolerated still requiring 2L o2 pancytopenia likely due to above could be from history of untreated b12 defeciency, repeat 164 started supplement hypokalemia replaced dvt prophylaxis - lovenox full code Quality Stroke Does the patient have a stroke diagnosis?: No VTE Prior VTE?: No VTE Risk Level:: Medical - moderate - high VTE Device Contraindication: Treatment Not Indicated VTE Drug Contraindication: N/A - Med Ordered
--- NOTE | 2021-07-13 12:34 | P.CNID_ITS ---
History of Present Illness Data of Consult Service Date: 07/13/21 Requesting physician: Malcom Samuels Primary Care Provider: Jose Puga MD [facility] Reason for consult: COVID hypoxia She presents with cough and shortness of breath for nine days She had body aches as well as weakness She is now day 12 on 2 liters oxygen Review of Systems Verdana 4l Review of Systems: Yes all other systems are reviewed and Verdana 4d are negative [facility] Family History Family history: reviewed and not pertinent Social History Social History Household Members: Family and Children Housing: House Do you presently have visiting nurse or other home services: No Patient Tobacco Use Status: Never used Tobacco Advance Directives Date on File: 07/11/21 service: No Current occupational status: unemployed Meds Allergies Allergy/AdvReac Type Severity Reaction Status Date / Time acetaminophen [From Allergy Mild LOSS OF Unverified 03/19/20 14:58 PERCOCET] HEARING oxycodone [From Allergy Mild LOSS OF Unverified 03/19/20 14:58 PERCOCET] HEARING penicillin G Allergy Unknown Unverified 01/27/20 00:00 Penicillins Allergy Unknown RASH Unverified 03/19/20 14:58 [PENICILLINS] Active Medications: Current Medications Acetaminophen (Acetaminophen 325 Mg Tablet) 650 mg PO Q6H PRN PRN Reason: Pain, Mild (Pain Scale 1-3) Last Admin: 07/13/21 11:14 Dose: 650 mg Documented by: Cyanocobalamin (Cyanocobalamin (Vitamin B-12) 1,000 Mcg Tablet) 1,000 mcg PO DAILY [facility] Last Admin: 07/13/21 10:22 Dose: 1,000 mcg Documented by: Dexamethasone Sodium Phosphate (Dexamethasone Sod Phosphate 4 Mg/Ml Vial) 6 mg IVPUSH DAILY [facility] Last Admin: 07/13/21 10:21 Dose: 6 mg Documented by: Enoxaparin Sodium (Enoxaparin Sodium 40 Mg/0.4 Ml Syringe) 40 mg SUBCUT Q24H [facility] Last Admin: 07/12/21 20:45 Dose: 40 mg Documented by: Morphine Sulfate (Morphine Sulfate 2 Mg/Ml Cartridge) 1 mg IVPUSH Q4H PRN; Protocol PRN Reason: pain/sob Last Admin: 07/12/21 09:49 Dose: 1 mg Documented by: Ondansetron HCl (Ondansetron Hcl 4 Mg/2 Ml Vial) 4 mg IVPUSH Q6H PRN PRN Reason: nasuea Senna (Sennosides 8.6 Mg Tablet) 17.2 mg PO BEDTIME PRN PRN Reason: Constipation Sodium Chloride (0.9 % Sodium Chloride Flush 3 Ml Syringe) 3 ml IVFLUSH QSHIFT [facility] Last Admin: 07/13/21 10:21 Dose: 3 ml Documented by: Physical Exam Verdana 4l Vital Signs: Verdana 4d Verdana 4d Vital Signs: Verdana 4d Verdana 4Bd Last Vital Signs Verdana 4d Lead Data Architect New 4d Lead Data Architect New 4d Temp 97.6 F 07/13/21 12:00 Lead Data Architect New 4d Pulse 78 07/13/21 12:00 Lead Data Architect New 4d Resp 20 07/13/21 12:00 BP 103/62 07/13/21 12:00 Pulse Ox 96 07/13/21 12:00 BMI result Body Mass Index 30.9 Const: General: cooperative HENMT: Head: Yes normal to inspection Eyes: Pupils: Equal, round and reactive pupils present Resp: Effort & Inspection: normal respiratory effort Cardio: Rate: regular rate Rhythm: regular rhythm GI: Palpation (GI): nontender Skin: General skin exam: no rashes or lesions noted Neuro: Cranial nerves: Yes Equal, round and reactive pupils present Results Labs CBC & Chem 7: 07/15/21 06:44 07/15/21 06:44 Labs: Short CBC 07/13/21 Range/Units 06:38 WBC 3.5 L (4.8-10.8) X10*3/uL Hgb 10.3 L (12.0-16.0) g/dl Hct 32.0 L (37.0-47.0) % Plt Count 222 (160-400) X10*3/uL BMP 07/13/21 06:37 Sodium 141 Potassium 4.1 D Chloride 104 Carbon Dioxide 30 H BUN 15 Creatinine 0.77 Calcium 9.1 Assessment and Plan (1) COVID-19 virus infection: Status: Resolved She is on 2 liters and is day 12 of symptoms She is comfortable and receiving Dexamethasone Plan Continue Dexamethasone Finish 10 d course
[2021-07-13 15:20] VITALS: BP 113/81; PULSE 73; RESP 20; TEMP 36.7; O2SAT 94
[2021-07-13 19:17] VITALS: BP 99/64; PULSE 78; RESP 20; TEMP 36.1; O2SAT 94
[2021-07-13] MEDS: Enoxaparin Sodium 40 MG/0.4 ML SYRINGE SUBCUT (21:43)
[2021-07-13 23:48] VITALS: BP 105/65; PULSE 82; RESP 18; TEMP 36.8; O2SAT 95
[2021-07-14 03:49] VITALS: BP 91/53; PULSE 60; RESP 17; TEMP 36.6; O2SAT 97
[2021-07-14 07:25] VITALS: BP 100/65; PULSE 68; RESP 20; TEMP 36.6; O2SAT 97
[2021-07-14 07:29] LABS: Hematocrit 32.7 % (37.0-47.0); Hemoglobin 10.5 g/dl (12.0-16.0); Mean Corpuscular HGB Conc 32.1 g/dl (31.0-35.0); Mean Corpuscular Hemoglobin 29.6 pg (27.0-33.0); Mean Corpuscular Volume 92.1 fL (80.0-98.0); Mean Platelet Volume 11.6 fL (9.4-12.3); Platelet Count 306 X10*3/uL (160-400); Red Blood Count 3.55 X10*6/uL (4.20-5.50); White Blood Count 4.1 X10*3/uL (4.8-10.8)
[2021-07-14 07:39] LABS: Anion Gap 15 (12-20); Blood Urea Nitrogen 18 mg/dL (9-16); C Reactive Protein 2.72 mg/dL (< or = 0.50); Calcium 9.2 mg/dL (8.4-10.2); Carbon Dioxide 24 mmol/L (22-29); Chloride 107 mmol/L (96-108); Estimated Glomerular Filt Rate > 60; Glucose Fasting 90 mg/dL (60-99); Potassium 3.8 mmol/L (3.3-5.1); Sodium 142 mmol/L (135-145)
[2021-07-14] MEDS: dexAMETHasone sod phosphate 4 MG/ML VIAL 6 MG IVPUSH (07:51)
[2021-07-14] MEDS: Cyanocobalamin (Vitamin B-12) 1,000 MCG TABLET 1000 MCG PO (07:51)
[2021-07-14] MEDS: ondansetron HCL 4 MG/2 ML VIAL IVPUSH (07:59)
[2021-07-14] MEDS: 0.9 % Sodium Chloride Flush 3 ML SYRINGE IVFLUSH ×2 (07:59→20:37)
--- NOTE | 2021-07-14 11:23 | MHC.CM.PN ---
Per ROUNDS discussion, Patient is not yet medically cleared for dc (IV Decadron, 2LO2); Home is the goal for dc and CM will follow for possible need to adjust the dc plan.
[2021-07-14 11:31] VITALS: BP 97/61; PULSE 76; RESP 19; TEMP 36.9; O2SAT 95
--- NOTE | 2021-07-14 14:55 | P.PNIM_ITS ---
Subjective Subjective Date of Service: 07/14/21 Interval History: breathing slowly improving however still short of breath with minimal exertion Review of Systems denies chest pain Admits to exertional shortness of breath Denies nausea and vomiting and diarrhea Physical Exam Vital Signs: Vital Signs: Last Vital Signs Temp 98.5 F 07/14/21 11:31 Pulse 76 07/14/21 11:31 Resp 19 07/14/21 11:31 BP 97/61 07/14/21 11:31 Pulse Ox 95 07/14/21 11:31 BMI result Body Mass Index 30.9 Objective Data Active Medications Acetaminophen (Acetaminophen 325 Mg Tablet) 650 mg PO Q6H PRN PRN Reason: Pain, Mild (Pain Scale 1-3) Last Admin: 07/13/21 11:14 Dose: 650 mg Documented by: ANANYA Cyanocobalamin (Cyanocobalamin (Vitamin B-12) 1,000 Mcg Tablet) 1,000 mcg PO DAILY [facility] Last Admin: 07/14/21 07:51 Dose: 1,000 mcg Documented by: LISA Dexamethasone Sodium Phosphate (Dexamethasone Sod Phosphate 4 Mg/Ml Vial) 6 mg IVPUSH DAILY [facility] Last Admin: 07/14/21 07:51 Dose: 6 mg Documented by: LISA Enoxaparin Sodium (Enoxaparin Sodium 40 Mg/0.4 Ml Syringe) 40 mg SUBCUT Q24H [facility] Last Admin: 07/13/21 21:43 Dose: 40 mg Documented by: DEDRICK Morphine Sulfate (Morphine Sulfate 2 Mg/Ml Cartridge) 1 mg IVPUSH Q4H PRN; Protocol PRN Reason: pain/sob Last Admin: 07/12/21 09:49 Dose: 1 mg Documented by: REED Ondansetron HCl (Ondansetron Hcl 4 Mg/2 Ml Vial) 4 mg IVPUSH Q6H PRN PRN Reason: nasuea Last Admin: 07/14/21 07:59 Dose: 4 mg Documented by: LISA Senna (Sennosides 8.6 Mg Tablet) 17.2 mg PO BEDTIME PRN PRN Reason: Constipation Sodium Chloride (0.9 % Sodium Chloride Flush 3 Ml Syringe) 3 ml IVFLUSH QSHIFT [facility] Last Admin: 07/14/21 07:59 Dose: 3 ml Documented by: LISA Labs CBC & Chem 7: 07/14/21 07:02 07/14/21 07:02 Labs: Laboratory Results - last 24 hr 07/14/21 07/14/21 07:02 07:02 MCV 92.1 MCH 29.6 MCHC 32.1 RDW 13.0 Plt Count 306 D MPV 11.6 Absolute Nucleated RBC 0.000 Nucleated RBC % (auto) 0.0 Anion Gap 15 Estim Creat Clear Calc 102.0 Estimated GFR > 60 Fasting Glucose 90 Calcium 9.2 C-Reactive Protein 2.72 H Assessment and Plan (1) COVID-19 virus infection: Status: Acute Assessment and Plan: 41F presented with sob, myalgias 1.Acute hypoxic respiratory failure due to covid pneumonia Decadron day 5 Wean o2 as tolerated 2.Pancytopenia Resolving... continue to follow. Likely mu;tifactorial dvt prophylaxis - lovenox full code Quality Stroke Does the patient have a stroke diagnosis?: No VTE Prior VTE?: No VTE Risk Level:: Medical - moderate - high VTE Device Contraindication: Treatment Not Indicated VTE Drug Contraindication: N/A - Med Ordered
[2021-07-14 16:00] VITALS: BP 97/64; PULSE 72; RESP 18; TEMP 37.1; O2SAT 93
[2021-07-14 19:56] VITALS: BP 100/67; PULSE 66; RESP 18; TEMP 37.1; O2SAT 97
[2021-07-14] MEDS: Enoxaparin Sodium 40 MG/0.4 ML SYRINGE SUBCUT (20:36)
[2021-07-14 23:48] VITALS: BP 103/74; PULSE 65; RESP 18; TEMP 37.7; O2SAT 96
[2021-07-15 03:47] VITALS: BP 94/66; PULSE 61; RESP 17; TEMP 36.6; O2SAT 97
[2021-07-15 07:20] LABS: MANUAL DIFF FLAG NO
[2021-07-15 07:32] LABS: Basophils Percent Auto 0.2 % (0-2); Eosinophils Percent Auto 0.2 % (0-4); Hematocrit 32.3 % (37.0-47.0); Hemoglobin 10.5 g/dl (12.0-16.0); Imm Gran Pct Auto 1.9 % (0.0-0.4); Lymphocytes Absolute Auto 2.2 X10*3/uL (1.2-4.9); Lymphocytes Percent Auto 42.8 % (20-40); Mean Corpuscular HGB Conc 32.5 g/dl (31.0-35.0); Mean Corpuscular Hemoglobin 30.5 pg (27.0-33.0); Mean Corpuscular Volume 93.9 fL (80.0-98.0); Mean Platelet Volume 11.3 fL (9.4-12.3); Monocytes Absolute Auto 0.4 X10*3/uL (0.1-1.2); Monocytes Percent Auto 7.5 % (2-11); Neutrophils Absolute Auto 2.5 x10*3/uL (2.0-8.3); Neutrophils Percent Auto 47.4 % (45-73); Platelet Count 327 X10*3/uL (160-400); Red Blood Count 3.44 X10*6/uL (4.20-5.50); Red Cell Distribution Width 13.2 % (11.0-16.0); White Blood Count 5.2 X10*3/uL (4.8-10.8)
[2021-07-15 07:49] VITALS: BP 109/54; PULSE 66; RESP 18; TEMP 36.3; O2SAT 95
[2021-07-15 07:59] LABS: Alanine Aminotransferase 25 U/L (0-31); Albumin Level 3.5 g/dL (3.5-5.0); Alkaline Phosphatase 63 U/L (39-117); Anion Gap 11 (12-20); Aspartate Amino Transferase 20 U/L (5-31); Bilirubin Total 0.6 mg/dL (0.0-1.0); Blood Urea Nitrogen 16 mg/dL (9-16); Carbon Dioxide 29 mmol/L (22-29); Chloride 105 mmol/L (96-108); Creatinine Clr Calc Pharmacy 95.6; Estimated Glomerular Filt Rate > 60; Glucose Fasting 88 mg/dL (60-99); Potassium 3.7 mmol/L (3.3-5.1); Sodium 141 mmol/L (135-145); Total Protein 6.6 g/dL (6.5-8.0)
[2021-07-15] MEDS: 0.9 % Sodium Chloride Flush 3 ML SYRINGE IVFLUSH (08:57)
[2021-07-15] MEDS: dexAMETHasone sod phosphate 4 MG/ML VIAL 6 MG IVPUSH (08:57)
[2021-07-15] MEDS: Cyanocobalamin (Vitamin B-12) 1,000 MCG TABLET 1000 MCG PO (08:57)
[2021-07-15 11:40] VITALS: BP 103/69; PULSE 73; RESP 18; TEMP 36.6; O2SAT 97
[2021-07-15 13:13] VITALS: PULSE 78; O2SAT 95
--- NOTE | 2021-07-15 14:12 | P.DS_ITS ---
DS: Providers Provider Date of Service: 07/15/21 Date of admission: 07/10/21 20:26 Date of discharge: 07/15/21 Primary care physician: Jose Puga MD Consults: 07/10/21 20:29 Consult to Infectious Diseases Routine Consulting Provider: Gladys Aiken Reason for consultation: covid pna DS: Diagnosis Discharge Diagnosis (1) COVID-19 virus infection: Status: Acute DS: Summary Hospital Course Hospital Course: 41-year-old female with no significant past medical history presented to the hospital with a chief complaint of shortness of breath.? Patient reports that over the past 5-6 days she has been having shortness of breath, dyspnea on exertion.? Patient reports the was positive for COVID-19 infection. er ER team patient was noted to be mildly tachypneic; chest x-ray showed COVID pneumonia; patient was saturating 91% on room air; the lowest was 88%; patient of placed on supplemental oxygen.? Admitted to the hospital for further management. Hospital Course patient was admitted, started on IV dexamethasone and supplemental O2 as she was on day 12 of symptoms when she presented. She progressively improved, and on the day discharge she was ambulating without the need for O2. She will be discharged home to complete a Decadron taper and follow-up with PCP Time Spent with Patient Time attestation: Total time spent providing and/or coordinating discharge services: Discharge coordination time: Greater than 30 minutes Quality: Stroke Does the patient have a stroke diagnosis?: No Physical Exam Vital Signs: Vital Signs: Last Vital Signs Temp 97.8 F 07/15/21 11:40 Pulse 73 07/15/21 11:40 Resp 18 07/15/21 11:40 BP 103/69 07/15/21 11:40 Pulse Ox 97 07/15/21 11:40 BMI result Body Mass Index 30.9 Const: Other: no acute distress Resp: Other: clear but diminished all salcido. Scant expiratory wheezes Cardio: Other: no S4; positive S1-S2; no S3 murmurs rubs or gallops Extrem: Other: no edema bilaterally DS: Data Data Completed and Pending Labs on day of discharge: Laboratory Results - last 24 hr 07/15/21 07/15/21 06:44 06:44 WBC 5.2 RBC 3.44 L Hgb 10.5 L Hct 32.3 L MCV 93.9 MCH 30.5 MCHC 32.5 RDW 13.2 Plt Count 327 MPV 11.3 Immature Gran % (Auto) 1.9 H Neut % (Auto) 47.4 Lymph % (Auto) 42.8 H [place] % (Auto) 7.5 Eos % (Auto) 0.2 Baso % (Auto) 0.2 Lymph # (Auto) 2.2 [place] # (Auto) 0.4 Eos # (Auto) 0.0 Baso # (Auto) 0.0 Abs Immat Gran (auto) 0.10 H Absolute Neuts (auto) 2.5 Absolute Nucleated RBC 0.000 Nucleated RBC % (auto) 0.0 Sodium 141 Potassium 3.7 Chloride 105 Carbon Dioxide 29 Anion Gap 11 L BUN 16 Creatinine 0.80 Estim Creat Clear Calc 95.6 Estimated GFR > 60 Fasting Glucose 88 Calcium 9.0 Total Bilirubin 0.6 AST 20 ALT 25 Alkaline Phosphatase 63 Total Protein 6.6 Albumin 3.5 Discharge Plan Discharge Patient Disposition: Home, Self-Care Discharge Diagnosis: Covid-19 Referrals: Jose Puga MD [Primary Care Provider] - 1 Week Discharge Medications: New dexamethasone [Decadron] 6 mg tablet 6 mg PO DAILY Qty: 5 RF: 0 Discharge Orders: Discharge Order (Routine); Ordered 07/15/21 Ordered By: Ranjit Richardson Diet: advance to usual diet Activity on Discharge: As tolerated Stand Alone Forms: Patient Portal Discharge page Care Plan Goals: slowly advanced activities Health Concerns: you may feel short of breath however your oxygen was normal Plan of Treatment: finish Decadron as ordered Assessment: as per DC summary
--- NOTE | 2021-07-15 14:13 | MHC.CM.PN ---
Patient has been medically cleared for dc to home today, no services.
== END 2021-07-15 18:23 | disposition home or self-care (01) | DRG 137 ==
LOC: HO.ED 20:09 → HO.EDOVER 20:34 → HO.IMC 07-12 13:18
PROVIDERS: Internal Medicine; Admitting Provider Hospitalist; Emergency Provider Emergency Medicine; PCP Internal Medicine; Visit Provider Hospitalist
DX: U07.1 COVID-19 (principal); J96.01 Acute respiratory failure with hypoxia; J12.82 Pneumonia due to coronavirus disease 2019; D61.818 Other pancytopenia; E87.6 Hypokalemia; E53.8 Deficiency of other specified B group vitamins; Z88.0 Allergy status to penicillin; Z88.5 Allergy status to narcotic agent; Z88.6 Allergy status to analgesic agent
CPT/HCPCS: 0241U; 36415; 71045; 80048; 80053; 80076; 81001; 82607; 83615; 83690; 83735; 85025; 85027; 85379; 86140; 96361; 96374; 96375; 99285; J1100; J1650; J2270; J2405

== ENCOUNTER 2022-01-01 12:51 | Observation (INO) | payer BC, SELFPAY ==
--- NOTE | ~2022-01-01 | CT_ITS ---
EXAMINATION: CT HEAD WITHOUT CONTRAST CLINICAL INFORMATION: Dizziness COMPARISON: None TECHNIQUE: Imaging was performed from the skull base to vertex without intravenous administration of contrast. This CT examination was performed using dose optimization techniques as appropriate, variously including the following: *Automated exposure control *Adjustment of mA and/or kV according to patient size (this includes techniques or standardized protocols for targeted exams where dose is matched to indication/reason for exam; i.e. extremities or head) *Use of iterative reconstruction technique Total exam dose length product: 631 mGy-cm FINDINGS: No intra or extra-axial fluid collection, hemorrhage, or mass. No ventriculomegaly. No midline shift or herniation. Basal cisterns are patent. Black-white matter differentiation is maintained. No territorial encephalomalacia. No significant volume loss. There is no abnormal attenuation within the brain parenchyma. No calvarial fracture or soft tissue abnormality. The mastoid air cells and visualized portions of the paranasal sinuses are well aerated. CT/CT head/brain wo con IMPRESSION: 1. No acute intracranial pathology.
[2022-01-01 12:57] VITALS: BP 125/84; PULSE 83; RESP 19; TEMP 36.6; O2SAT 98; BMI 30.9
--- NOTE | 2022-01-01 18:28 | ECG_ITS ---
Test Reason : DIZZINESS Blood Pressure : / mmHG Vent. Rate : 075 BPM Atrial Rate : 075 BPM P-R Int : 146 ms QRS Dur : 070 ms QT Int : 428 ms P-R-T Axes : 032 035 012 degrees QTc Int : 477 ms Normal sinus rhythm Normal ECG No previous ECGs available Referred By: Naveed Enamorado Electronically Signed By:BRANT ARMAS
--- NOTE | 2022-01-01 18:28 | ED.DIZZY ---
HPI - Dizziness General Chief Complaint: Dizziness Stated Complaint: dizziness Time Seen by Provider: 01/01/22 17:47 Source: patient Mode of arrival: ambulatory Limitations: no limitations History of Present Illness HPI Narrative: 41-year-old female history of migraines presenting to the emergency department complaints of dizziness since Monday (3 days ago) patient tells me that the dizziness has been going on every day since then, she tells me it is constant in nature, and precipitated by quick movements or by turning her head. She describes the dizziness as the room spinning. She tells me she was so dizzy on that she ended up falling off her bed hitting her head against a wall. She tells me she is followed by Neurology because she thinks she has a brain mass, they observe this mass however no medications being taken at this time. Patient tells me that she has never gotten an episode of dizziness like this. She denies any vision changes, nausea, vomiting, headache, head trauma, chills, fevers, abdominal pain, weakness. MD elicited complaint: dizziness Onset (ago): day(s) (3) Timing: gradual onset Severity: severe Description: room spinning Context: change in body position History of similar symptoms: No Exacerbating factors: movement/ambulation and change in body position Relieving factors: nothing Associated symptoms: denies other symptoms Related Data Previous Rx's Medication Instructions Recorded dexamethasone 6 mg tablet 6 mg PO DAILY #5 tabs 07/15/21 (Decadron) meclizine 25 mg tablet 25 mg PO BID PRN dizziness #14 tabs 01/01/22 Allergies Allergy/AdvReac Type Severity Reaction Status Date / Time acetaminophen [From PERCOCET] Allergy Mild LOSS OF Unverified 03/19/20 14:58 HEARING oxycodone [From PERCOCET] Allergy Mild LOSS OF Unverified 03/19/20 14:58 HEARING penicillin G Allergy Unknown Unverified 01/27/20 00:00 Penicillins [PENICILLINS] Allergy Unknown RASH Unverified 03/19/20 14:58 Review of Systems Review of Systems: Constitutional : No Weight loss, No Fever, No Chills, No Fatigue, No Malaise ENT/Mouth : No sore throat, No Rhinorrhea Eyes: No Eye Pain, No Swelling, No Redness Cardiovascular : No Chest Pain, No SOB, No Dyspnea on Exertion, No Orthopnea, No Edema, No Palpitations Respiratory : No Cough, No Sputum, No Wheezing Gastrointestinal : No Nausea, No Vomiting, No Diarrhea, No Constipation, No abdominal Pain, No Hematochezia, No Melena Genitourinary : No Dysuria, No Urinary Frequency, No Hematuria, Musculoskeletal : No joint pain, No Myalgias, No Joint Swelling Skin : No Skin Lesions, No rash Neuro : No Weakness, No Numbness, + Dizziness, No Headache Psych : No Anxiety/Panic, No Depression All other systems reviewed and are negative Yes all other systems are reviewed and are negative [facility] Past Medical History Attestation statement: The following information was validated with the patient. Source: old records reviewed and nursing notes reviewed Social History Social History Household Members: Family and Children Housing: House Do you presently have visiting nurse or other home services: No Patient Tobacco Use Status: Never used Tobacco Advance Directives: Yes Advance Directives on File: Yes Advance Directives Date on File: 07/11/21 service: No Current occupational status: unemployed Physical Exam Vital Signs: Vital Signs: Last Vital Signs Temp 98 F 01/01/22 12:57 Pulse 84 01/01/22 23:29 Resp 16 01/01/22 23:29 BP 117/82 01/01/22 23:29 Pulse Ox 100 01/01/22 23:29 O2 Del Method 01/01/22 23:29 BMI result Body Mass Index 30.9 Vital signs stable Appearance: Alert.? Oriented X3.? No acute distress.? Head: Normocephalic, atraumatic, no step-offs or deformities Eyes: Pupils equal, round and reactive to light.? ENT: Pharynx normal.? Neck: Normal inspection.? Neck supple.? CVS: Normal heart rate and rhythm.? Pulses normal.? Respiratory: No respiratory distress.? Breath sounds normal.? Abdomen: Soft and nontender.? Skin: Skin warm and dry.? Normal skin color.? Normal skin turgor.? Extremities: No lower extremity edema.? No calf ttp. 5/5 strength to bilateral upper and lower extremities Neuro: Oriented X 3.? No motor deficit.? No sensory deficit. CN 2-12 intact. Normal [id number], [id number], steady tandem gait. Negative pronator drift Course Reevaluation(s) Reevaluation #1: alirio maneuver done patient tolerated procedure well. Patient feeling better in the upright position, reports that dizziness has improved. Time: 19:15 Reevaluation #2: CBC appears to be at patient's baseline. Chemistry with no acute electrolyte abnormalities requiring intervention, troponin negative, beta hCG negative. UA pending. Head CT pending. Time: 19:29 Reevaluation #3: CT of head with no acute intracranial pathology Time: 22:24 Additional Reevaluation(s): Dizziness improved. Patient me the room is no longer spinning. She reports some vague complaints of nausea. She will be given Zofran. At this time patient will be discharged home with prompt PCP and neurology follow-up. At time of discharge patient with a nonfocal neuro exam, ambulating with steady gait. 0150 Patient ambulated with normal coordination steady gait without assistance, nausea improved minutes after Reglan and Benadryl where in ministry. No longer reporting spinning sensation tells me she is feeling slightly better however foggy. 0200 Patient now feels extreamly dizzy again. Discussed this case w/ hospitalist patient will be admitted at this time. At this time patient will be admitted for severe vertigo that has not responded to meclizine, fluids, Ativan, Benadryl, Reglan. MDM - Dizziness MDM Narrative Medical decision making narrative: 1829 41 yo f presents w/ dizziness x 3 days room spinning . Denies vision change. Not on thinners PE benign. Cerebellar function intact Orthos + due to sx. Plan- labs, ua, fluids, ct head, meclizine Medical Records Attestation: I reviewed the patient's medical records. Lab Data Attestation: I reviewed the patient's lab results. Result diagrams: 01/01/22 18:41 01/01/22 19:56 Labs: Lab Results 01/01/22 01/01/22 01/01/22 Range/Units 18:41 18:41 18:41 WBC 4.8 (4.8-10.8) X10*3/uL RBC 3.99 L (4.20-5.50) X10*6/uL Hgb 11.9 L (12.0-16.0) g/dl Hct 36.0 L (37.0-47.0) % MCV 90.2 (80.0-98.0) fL MCH 29.8 (27.0-33.0) pg MCHC 33.1 (31.0-35.0) g/dl RDW 13.0 (11.0-16.0) % Plt Count 208 D (160-400) X10*3/uL MPV 13.2 H (9.4-12.3) fL Immature Gran % (Auto) 0.2 (0.0-0.4) % Neut % (Auto) 49.3 (45-73) % Lymph % (Auto) 42.1 H (20-40) % Waller % (Auto) 6.3 (2-11) % Eos % (Auto) 1.9 (0-4) % Baso % (Auto) 0.2 (0-2) % Lymph # (Auto) 2.0 (1.2-4.9) X10*3/uL Waller # (Auto) 0.3 (0.1-1.2) X10*3/uL Eos # (Auto) 0.1 (0.0-0.4) X10*3/uL Baso # (Auto) 0.0 (0.0-0.2) X10*3/uL Abs Immat Gran (auto) 0.01 (0.00-0.03) X10*3/uL Absolute Neuts (auto) 2.4 (2.0-8.3) x10*3/uL Absolute Nucleated RBC 0.000 (0.0-0.012) X10*3/uL Nucleated RBC % (auto) 0.0 (0.0-0.2) /100WBC Sodium 141 (135-145) mmol/L Potassium 3.7 (3.3-5.1) mmol/L Chloride 106 (96-108) mmol/L Carbon Dioxide 28 (22-29) mmol/L Anion Gap 11 L (12-20) BUN 11 (9-16) mg/dL Creatinine 0.75 (0.5-1.4) mg/dL Estim Creat Clear Calc 102.0 Estimated GFR > 60 Random Glucose 94 (60-115) mg/dL Calcium 9.4 (8.4-10.2) mg/dL Magnesium (1.6-2.6) mg/dL Total Bilirubin (0.0-1.0) mg/dL AST (5-31) U/L ALT (0-31) U/L Alkaline Phosphatase (39-117) U/L Troponin I High Sens < 3.5 (<3.5-17.0) ng/L Total Protein (6.5-8.0) g/dL Albumin (3.5-5.0) g/dL Beta HCG, Quant < 2 mIU/mL COVID-19 (JANA) (Negative) COVID-19 Clin Com 01/01/22 01/01/22 Range/Units 19:56 19:56 WBC (4.8-10.8) X10*3/uL RBC (4.20-5.50) X10*6/uL Hgb (12.0-16.0) g/dl Hct (37.0-47.0) % MCV (80.0-98.0) fL MCH (27.0-33.0) pg MCHC (31.0-35.0) g/dl RDW (11.0-16.0) % Plt Count (160-400) X10*3/uL MPV (9.4-12.3) fL Immature Gran % (Auto) (0.0-0.4) % Neut % (Auto) (45-73) % Lymph % (Auto) (20-40) % Waller % (Auto) (2-11) % Eos % (Auto) (0-4) % Baso % (Auto) (0-2) % Lymph # (Auto) (1.2-4.9) X10*3/uL Waller # (Auto) (0.1-1.2) X10*3/uL Eos # (Auto) (0.0-0.4) X10*3/uL Baso # (Auto) (0.0-0.2) X10*3/uL Abs Immat Gran (auto) (0.00-0.03) X10*3/uL Absolute Neuts (auto) (2.0-8.3) x10*3/uL Absolute Nucleated RBC (0.0-0.012) X10*3/uL Nucleated RBC % (auto) (0.0-0.2) /100WBC Sodium 141 (135-145) mmol/L Potassium 3.8 (3.3-5.1) mmol/L Chloride 108 (96-108) mmol/L Carbon Dioxide 26 (22-29) mmol/L Anion Gap 11 L (12-20) BUN 11 (9-16) mg/dL Creatinine 0.68 (0.5-1.4) mg/dL Estim Creat Clear Calc 112.5 Estimated GFR > 60 Random Glucose 90 (60-115) mg/dL Calcium 8.5 D (8.4-10.2) mg/dL Magnesium 1.5 L (1.6-2.6) mg/dL Total Bilirubin 0.3 (0.0-1.0) mg/dL AST 16 (5-31) U/L ALT 10 (0-31) U/L Alkaline Phosphatase 78 D (39-117) U/L Troponin I High Sens (<3.5-17.0) ng/L Total Protein 6.3 L (6.5-8.0) g/dL Albumin 3.7 (3.5-5.0) g/dL Beta HCG, Quant mIU/mL COVID-19 (JANA) Negative (Negative) COVID-19 Clin Com See Note ECG Data Attestation: I personally reviewed and interpreted this ECG as follows: ECG interpretation date: 01/01/22 ECG interpretation time: 19:32 Prior ECG tracings: not available for review Interpretation: Ventricular rate of 75 OH normal, QRS normal, QT/QTC normal. EKG with normal sinus rhythm no ST elevations or inversions concerning for ischemia. No previous EKGs to compare with Critical Care Time Critical Care Time Critical Care Time: No Discharge Plan Discharge Clinical Impression: Benign paroxysmal positional vertigo, Nausea & vomiting Patient Disposition: Admitted As Inpatient Instructions: Vertigo (ED), Benign Paroxysmal Positional Vertigo (ED), Dizziness (ED) Prescriptions: New meclizine 25 mg tablet 25 mg PO BID PRN (Reason: dizziness) Qty: 14 0RF No Action dexamethasone [Decadron] 6 mg tablet 6 mg PO DAILY Qty: 5 0RF Referrals: Jose Puga III, MD [Primary Care Provider] - 2 days Stand Alone Forms: Work/School Release
[2022-01-01] MEDS: Meclizine HCl 25 MG TABLET PO (18:43)
[2022-01-01 18:46] LABS: MANUAL DIFF FLAG NO
[2022-01-01 18:52] LABS: Basophils Percent Auto 0.2 % (0-2); Eosinophils Absolute Auto 0.1 X10*3/uL (0.0-0.4); Eosinophils Percent Auto 1.9 % (0-4); Hemoglobin 11.9 g/dl (12.0-16.0); Imm Gran Abs Auto 0.01 X10*3/uL (0.00-0.03); Imm Gran Pct Auto 0.2 % (0.0-0.4); Lymphocytes Percent Auto 42.1 % (20-40); Mean Corpuscular HGB Conc 33.1 g/dl (31.0-35.0); Mean Corpuscular Hemoglobin 29.8 pg (27.0-33.0); Mean Corpuscular Volume 90.2 fL (80.0-98.0); Mean Platelet Volume 13.2 fL (9.4-12.3); Monocytes Absolute Auto 0.3 X10*3/uL (0.1-1.2); Monocytes Percent Auto 6.3 % (2-11); Neutrophils Absolute Auto 2.4 x10*3/uL (2.0-8.3); Neutrophils Percent Auto 49.3 % (45-73); Platelet Count 208 X10*3/uL (160-400); Red Blood Count 3.99 X10*6/uL (4.20-5.50); White Blood Count 4.8 X10*3/uL (4.8-10.8)
[2022-01-01 19:05] LABS: Anion Gap 11 (12-20); Blood Urea Nitrogen 11 mg/dL (9-16); Calcium 9.4 mg/dL (8.4-10.2); Carbon Dioxide 28 mmol/L (22-29); Chloride 106 mmol/L (96-108); Estimated Glomerular Filt Rate > 60; Glucose Random 94 mg/dL (60-115); Potassium 3.7 mmol/L (3.3-5.1); Sodium 141 mmol/L (135-145)
[2022-01-01 19:11] LABS: Troponin-I High Sensitivity < 3.5 ng/L (<3.5-17.0)
[2022-01-01 19:12] LABS: HCG Quantitative < 2 mIU/mL
[2022-01-01] MEDS: 0.9 % Sodium Chloride 1,000 ML 999 ML IV ×2 (19:46→23:29)
[2022-01-01] MEDS: LORazepam 2 MG/ML VIAL 0.5 MG IVPUSH (19:47)
[2022-01-01 20:25] LABS: COVID-19 Test Negative (Negative)
[2022-01-01 20:27] LABS: Alanine Aminotransferase 10 U/L (0-31); Albumin Level 3.7 g/dL (3.5-5.0); Alkaline Phosphatase 78 U/L (39-117); Anion Gap 11 (12-20); Aspartate Amino Transferase 16 U/L (5-31); Bilirubin Total 0.3 mg/dL (0.0-1.0); Blood Urea Nitrogen 11 mg/dL (9-16); Calcium 8.5 mg/dL (8.4-10.2); Carbon Dioxide 26 mmol/L (22-29); Chloride 108 mmol/L (96-108); Creatinine Clr Calc Pharmacy 112.5; Estimated Glomerular Filt Rate > 60; Glucose Random 90 mg/dL (60-115); Magnesium 1.5 mg/dL (1.6-2.6); Potassium 3.8 mmol/L (3.3-5.1); Sodium 141 mmol/L (135-145); Total Protein 6.3 g/dL (6.5-8.0)
[2022-01-01 23:20] VITALS: BP 111/70; PULSE 82; RESP 18; O2SAT 98
[2022-01-01 23:29] VITALS: BP 117/82; PULSE 84; RESP 16; O2SAT 100
--- NOTE | 2022-01-02 01:44 | PC.NURSE ---
pt ambulated without assist with steady gait. pt denies dizziness upon ambulation.
[2022-01-02] MEDS: Metoclopramide HCl 10 MG/2 ML VIAL IVPUSH (01:46)
[2022-01-02] MEDS: diphenhydrAMINE HCL 50 MG/ML VIAL 25 MG IVPUSH (01:46)
[2022-01-02] MEDS: 0.9 % Sodium Chloride 1,000 ML 999 ML IV ×2 (01:47→03:00)
[2022-01-02 04:15] VITALS: BP 122/83; PULSE 86; RESP 16; O2SAT 99
--- NOTE | 2022-01-02 04:49 | PC.NURSE ---
I assumed nursing care of Yodit at 1900. She presented to the ED for evaluation of dizziness. She has remained alert, oriented x 3, calm and cooperative. She is able to adequately vocalize her needs, makes eye contact with staff, AUREA x 4. She states she experiences dizziness and lightheadedness with minimal movement of her head. She states that she 'fell out of bed one day prior to arrival to ED due to extreme dizziness. She denies chest pain. Skin warm and dry. Afebrile. Respirations have been spontaneous, non-labored. RR 18-20, no cyanosis, room air sat's 95% or better, she speaks in full sentences. No cough. No nausea. No vomiting. She has taken PO fluids without difficulty. Yodit is TBADM and verbalizes an understanding of this.
--- NOTE | 2022-01-02 05:58 | PM.IMHP ---
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 Patient reports that her symptoms started on Monday, very severe on minimal head movement, associated with nausea no vomiting. Patient reports no alleviating factors. Reports no recent head injury, ear infection. No tinnitus. Patient denies any fever or chills, no abdominal pain, no diarrhea constipation, no urinary symptoms and no lower extremity edema. Patient received meclizine, Ativan, and underwent Lorenzo maneuver in the ED but with no relief and a significantly dizzy with vertigo. On arrival to the ED patient hemodynamically stable with no significant abnormal vitals Labs are significant for WBC count of 4.8, hemoglobin of 11.9, hematocrit 36, labs otherwise unremarkable Head CT showed was no intra or extra-axial fluid collection, hemorrhage or mass. No midline shift or herniation. There is no abnormal attenuation within the brain parenchyma. As patient vertigo is severe, and intractable, causing her difficulty walking patient will be admitted for observation Review of Systems Review of Systems: Yes all other systems are reviewed and are negative [facility] Medical History (Updated 01/02/22 @ 06:52 by Carrie Gray MD) No pertinent past medical history Family History (Updated 01/02/22 @ 06:51 by Carrie Gray MD) Other No family history of coronary artery disease Surgical History (Updated 01/02/22 @ 06:52 by Carrie Gray MD) History of Social History Household Members: Family and Children Housing: House Do you presently have visiting nurse or other home services: No Patient Tobacco Use Status: Never used Tobacco Advance Directives: Yes Advance Directives on File: Yes Advance Directives Date on File: 07/11/21 service: No Current occupational status: unemployed Meds Allergies Allergy/AdvReac Type Severity Reaction Status Date / Time acetaminophen [From PERCOCET] Allergy Mild LOSS OF Unverified 03/19/20 14:58 HEARING oxycodone [From PERCOCET] Allergy Mild LOSS OF Unverified 03/19/20 14:58 HEARING penicillin G Allergy Unknown Unverified 01/27/20 00:00 Penicillins [PENICILLINS] Allergy Unknown RASH Unverified 03/19/20 14:58 Active Medications: Current Medications Acetaminophen (Acetaminophen 325 Mg Tablet) 650 mg PO Q6H PRN PRN Reason: Pain, Mild (Pain Scale 1-3) Docusate Sodium (Docusate Sodium 100 Mg Capsule) 100 mg PO DAILY PRN PRN Reason: Constipation Ondansetron HCl (Ondansetron Hcl 4 Mg/2 Ml Vial) 4 mg IVPUSH Q8H PRN PRN Reason: Nausea and Vomiting Pharmacy Consult (Consult Rx Perform Med Rec) 1 each MISCELLANE ONCE PRN PRN Reason: Consult order Home Medications Medication Instructions Recorded Confirmed Last Taken Type No Known Home Meds 01/02/22 01/02/22 Unknown History Physical Exam Vital Signs and Narrative: Vital Signs: Last Vital Signs Temp 98 F 01/01/22 12:57 Pulse 86 01/02/22 04:15 Resp 16 01/02/22 04:15 BP 122/83 01/02/22 04:15 Pulse Ox 99 01/02/22 04:15 O2 Del Method 01/02/22 04:15 BMI result Body Mass Index 30.9 Const: General: cooperative and no acute distress Orientation/consciousness: patient oriented x3 Eyes: General: appearance normal, both eyes and all related structures Resp: Effort & Inspection: normal respiratory effort Auscultation: clear to auscultation bilaterally Cardio: Rate: regular rate Rhythm: regular rhythm GI: Palpation (GI): Soft to palpation Auscultation: normal bowel sounds Skin: General skin exam: no rashes or lesions noted Neuro: Other: No nystagmus General: patient oriented x3 Cognition (Neuro): normal cognition Extrem: General: Yes normal to inspection and Yes no pedal edema Results Labs CBC and Chem 7: 01/01/22 18:41 01/01/22 19:56 Labs: Laboratory Results - last 24 hr 01/01/22 01/01/22 01/01/22 18:41 18:41 18:41 MCV 90.2 MCH 29.8 MCHC 33.1 RDW 13.0 Plt Count 208 D MPV 13.2 H Immature Gran % (Auto) 0.2 Neut % (Auto) 49.3 Lymph % (Auto) 42.1 H Faulk % (Auto) 6.3 Eos % (Auto) 1.9 Baso % (Auto) 0.2 Lymph # (Auto) 2.0 Faulk # (Auto) 0.3 Eos # (Auto) 0.1 Baso # (Auto) 0.0 Abs Immat Gran (auto) 0.01 Absolute Neuts (auto) 2.4 Absolute Nucleated RBC 0.000 Nucleated RBC % (auto) 0.0 Anion Gap 11 L Estim Creat Clear Calc 102.0 Estimated GFR > 60 Random Glucose 94 Calcium 9.4 Magnesium Total Bilirubin AST ALT Alkaline Phosphatase Troponin I High Sens < 3.5 Total Protein Albumin Beta HCG, Quant < 2 COVID-19 (JANA) COVID-19 Clin Com 01/01/22 01/01/22 19:56 19:56 MCV MCH MCHC RDW Plt Count MPV Immature Gran % (Auto) Neut % (Auto) Lymph % (Auto) Faulk % (Auto) Eos % (Auto) Baso % (Auto) Lymph # (Auto) Faulk # (Auto) Eos # (Auto) Baso # (Auto) Abs Immat Gran (auto) Absolute Neuts (auto) Absolute Nucleated RBC Nucleated RBC % (auto) Anion Gap 11 L Estim Creat Clear Calc 112.5 Estimated GFR > 60 Random Glucose 90 Calcium 8.5 D Magnesium 1.5 L Total Bilirubin 0.3 AST 16 ALT 10 Alkaline Phosphatase 78 D Troponin I High Sens Total Protein 6.3 L Albumin 3.7 Beta HCG, Quant COVID-19 (JANA) Negative COVID-19 Clin Com See Note Imaging Radiologist's Impressions: Impressions Head CT 01/01/22 22:04 IMPRESSION: 1. No acute intracranial pathology. Assessment and Plan (1) Benign paroxysmal positional vertigo: Status: Acute (2) Nausea & vomiting: Status: Acute Plan 41-year-old female with no significant past medical history who presents to the hospital with intractable vertigo # vertigo - likely secondary to BPPV - patient received multiple rounds of meclizine, and Ativan with no symptom relief - will admit for PT to do Lorenzo maneuver DVT prophylaxis: Early ambulation Quality Stroke Does the patient have a stroke diagnosis?: No VTE Prior VTE?: No VTE Risk Level:: Medical - low VTE Device Contraindication: Treatment Not Indicated VTE Drug Contraindication: Treatment Not Indicated
[2022-01-02 09:03] LABS: Basophils Percent Auto 0.2 % (0-2); Eosinophils Absolute Auto 0.1 X10*3/uL (0.0-0.4); Mean Corpuscular Volume 92.6 fL (80.0-98.0); Red Cell Distribution Width 13.2 % (11.0-16.0); SCAN SMEAR FLAG 1
[2022-01-02 09:04] LABS: Anion Gap 12 (12-20); Blood Urea Nitrogen 9 mg/dL (9-16); Calcium 8.1 mg/dL (8.4-10.2); Carbon Dioxide 25 mmol/L (22-29); Chloride 107 mmol/L (96-108); Creatinine Clr Calc Pharmacy 106.3; Estimated Glomerular Filt Rate > 60; Glucose Random 105 mg/dL (60-115); Potassium 3.5 mmol/L (3.3-5.1); Sodium 140 mmol/L (135-145)
[2022-01-02 09:05] LABS: Eosinophils Percent Auto 1.8 % (0-4); Hematocrit 32.6 % (37.0-47.0); Hemoglobin 10.5 g/dl (12.0-16.0); Imm Gran Abs Auto 0.01 X10*3/uL (0.00-0.03); Imm Gran Pct Auto 0.2 % (0.0-0.4); Lymphocytes Absolute Auto 1.6 X10*3/uL (1.2-4.9); Lymphocytes Percent Auto 35.3 % (20-40); Mean Corpuscular HGB Conc 32.2 g/dl (31.0-35.0); Mean Corpuscular Hemoglobin 29.8 pg (27.0-33.0); Mean Platelet Volume 13.5 fL (9.4-12.3); Monocytes Absolute Auto 0.3 X10*3/uL (0.1-1.2); Monocytes Percent Auto 5.9 % (2-11); Neutrophils Absolute Auto 2.5 x10*3/uL (2.0-8.3); Neutrophils Percent Auto 56.6 % (45-73); Platelet Count 154 X10*3/uL (160-400); Red Blood Count 3.52 X10*6/uL (4.20-5.50); White Blood Count 4.4 X10*3/uL (4.8-10.8)
[2022-01-02 09:07] LABS: MANUAL DIFF FLAG NO; PLT ABN DIST 1
--- NOTE | 2022-01-02 10:35 | PM.DS ---
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 Patient reports that her symptoms started on Monday, very severe on minimal head movement, associated with nausea no vomiting.? Patient reports no alleviating factors.? Reports no recent head injury, ear infection.? No tinnitus.? Patient denies any fever or chills, no abdominal pain, no diarrhea constipation, no urinary symptoms and no lower extremity edema.? Patient received meclizine, Ativan, and underwent Alirio maneuver in the ED but with no relief and a significantly dizzy with vertigo. On arrival to the ED patient hemodynamically stable with no significant abnormal vitals Labs are significant for WBC count of 4.8, hemoglobin of 11.9, hematocrit 36, labs otherwise unremarkable Head CT showed was no intra or extra-axial fluid collection, hemorrhage or mass.? No midline shift or herniation.? There is no abnormal attenuation within the brain parenchyma. As patient vertigo is severe, and intractable, causing her difficulty walking patient will be admitted for observation hospital course: 41-year-old female presented with episodes of vertigo. History and physical exam consistent with benign positional paroxysmal vertigo. Patient noted some improvement with Alirio maneuver, though not totally resolved. She is feeling overall better and would like to continue maneuvers at home. Patient will be given meclizine to premedicate prior to continued Alirio maneuvers. Time Spent with Patient Time attestation: Total time spent providing and/or coordinating discharge services: Discharge coordination time: Greater than 30 minutes Quality: Safe Use of Opioids Does Pt have an Active Cancer Diagnosis on the Problem List?: No Quality: Stroke Does the patient have a stroke diagnosis?: No Physical Exam Vital Signs: Vital Signs: Last Vital Signs Temp 98 F 01/01/22 12:57 Pulse 86 01/02/22 04:15 Resp 16 01/02/22 04:15 BP 122/83 01/02/22 04:15 Pulse Ox 99 01/02/22 04:15 O2 Del Method 01/02/22 04:15 BMI result Body Mass Index 30.9 General: AO X 3, no acute distress Resp: CTA bilateral, no accessory muscles used CVS: S1,S2,RRR GI: soft, non tender, non distended Neuro: motor grossly intact, alert, horizontal unidirectional (leftward) nystagmus Psych: appropriate affect, appropriate insight DS: Data Data Completed and Pending Labs on day of discharge: Laboratory Results - last 24 hr 01/01/22 01/01/22 01/01/22 18:41 18:41 18:41 WBC 4.8 RBC 3.99 L Hgb 11.9 L Hct 36.0 L MCV 90.2 MCH 29.8 MCHC 33.1 RDW 13.0 Plt Count 208 D MPV 13.2 H Immature Gran % (Auto) 0.2 Neut % (Auto) 49.3 Lymph % (Auto) 42.1 H Holmes % (Auto) 6.3 Eos % (Auto) 1.9 Baso % (Auto) 0.2 Lymph # (Auto) 2.0 Holmes # (Auto) 0.3 Eos # (Auto) 0.1 Baso # (Auto) 0.0 Abs Immat Gran (auto) 0.01 Absolute Neuts (auto) 2.4 Absolute Nucleated RBC 0.000 Nucleated RBC % (auto) 0.0 Sodium 141 Potassium 3.7 Chloride 106 Carbon Dioxide 28 Anion Gap 11 L BUN 11 Creatinine 0.75 Estim Creat Clear Calc 102.0 Estimated GFR > 60 Random Glucose 94 Calcium 9.4 Magnesium Total Bilirubin AST ALT Alkaline Phosphatase Troponin I High Sens < 3.5 Total Protein Albumin Beta HCG, Quant < 2 COVID-19 (JANA) COVID-19 Clin Com 01/01/22 01/01/22 01/02/22 19:56 19:56 08:23 WBC 4.4 L RBC 3.52 L Hgb 10.5 L Hct 32.6 L MCV 92.6 MCH 29.8 MCHC 32.2 RDW 13.2 Plt Count 154 L D MPV 13.5 H Immature Gran % (Auto) 0.2 Neut % (Auto) 56.6 Lymph % (Auto) 35.3 Holmes % (Auto) 5.9 Eos % (Auto) 1.8 Baso % (Auto) 0.2 Lymph # (Auto) 1.6 Holmes # (Auto) 0.3 Eos # (Auto) 0.1 Baso # (Auto) 0.0 Abs Immat Gran (auto) 0.01 Absolute Neuts (auto) 2.5 Absolute Nucleated RBC 0.000 Nucleated RBC % (auto) 0.0 Sodium 141 Potassium 3.8 Chloride 108 Carbon Dioxide 26 Anion Gap 11 L BUN 11 Creatinine 0.68 Estim Creat Clear Calc 112.5 Estimated GFR > 60 Random Glucose 90 Calcium 8.5 D Magnesium 1.5 L Total Bilirubin 0.3 AST 16 ALT 10 Alkaline Phosphatase 78 D Troponin I High Sens Total Protein 6.3 L Albumin 3.7 Beta HCG, Quant COVID-19 (JANA) Negative COVID-19 Clin Com See Note 01/02/22 08:23 WBC RBC Hgb Hct MCV MCH MCHC RDW Plt Count MPV Immature Gran % (Auto) Neut % (Auto) Lymph % (Auto) Holmes % (Auto) Eos % (Auto) Baso % (Auto) Lymph # (Auto) Holmes # (Auto) Eos # (Auto) Baso # (Auto) Abs Immat Gran (auto) Absolute Neuts (auto) Absolute Nucleated RBC Nucleated RBC % (auto) Sodium 140 Potassium 3.5 Chloride 107 Carbon Dioxide 25 Anion Gap 12 BUN 9 Creatinine 0.72 Estim Creat Clear Calc 106.3 Estimated GFR > 60 Random Glucose 105 Calcium 8.1 L Magnesium Total Bilirubin AST ALT Alkaline Phosphatase Troponin I High Sens Total Protein Albumin Beta HCG, Quant COVID-19 (JANA) COVID-19 Clin Com Discharge Plan Discharge Patient Disposition: Home, Self-Care Discharge Diagnosis: bppv Referrals: Jose Puga III, MD [Primary Care Provider] - 2 days Discharge Medications: New meclizine 25 mg tablet 25 mg PO TID PRN (Reason: dizziness) Qty: 30 0RF Discharge Orders: Discharge Order (Routine); Ordered 01/02/22 Ordered By: Malcom Samuels Diet: Advance to usual diet Activity on Discharge: As tolerated Stand Alone Forms: Patient Portal Discharge page, Work/School Release Care Plan Goals: recovery Health Concerns: bppv Plan of Treatment: alirio maneuver, can premedicate with meclizine Assessment: see above Patient Instructions: Vertigo (ED), Benign Paroxysmal Positional Vertigo (ED), Dizziness (ED)
== END 2022-01-02 11:30 | disposition home or self-care (01) ==
LOC: HO.ED 01-02 02:20 → HO.EDOVER 01-02 05:56
PROVIDERS: Physician Assistant; Admitting Provider Internal Medicine; Emergency Provider Emergency Medicine; PCP Internal Medicine; Visit Provider Internal Medicine
DX: H81.10 Benign paroxysmal vertigo, unspecified ear (principal); R11.2 Nausea with vomiting, unspecified; R26.2 Difficulty in walking, not elsewhere classified; Z20.822 Contact with and (suspected) exposure to COVID-19; Z79.899 Other long term (current) drug therapy
CPT/HCPCS: 36415; 70450; 80048; 80053; 83735; 84484; 84702; 85025; 87635; 93005; 96361; 96374; 96375; 99218; 99284; 99285; J1200; J2060; J2765